=== PATIENT | male | born 1975 | race African-American/Black ===

== ENCOUNTER 2023-08-27 13:59 | Outpatient (AMB) | payer OTHER, SELFPAY ==
--- NOTE | 2023-08-27 14:04 | A.SPINEOV_ITS ---
Intake Intake Visit Reasons: spinal stenosis Intake Note: Mr. Mark is here today c/o low back pain. 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 He is a 48-year-old HIV- positive gentleman who has had chronic low back pain for years, with intermittent feelings of fatigue in his legs. He works at [employer] and has been very physical with his job for many years. More recently he is also experienced worsening of his pre-existing erectile dysfunction. He underwent a new MRI showing moderate to severe stenosis at L4-5 and was sent today for an evaluation urgently to evaluate for possible stenosis being part of his issue with erectile dysfunction. From the standpoint of his back pain, he is in chronic pain daily from the moment he gets up in the morning throughout his day. Has I mentioned he is very physically active with his job. 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 None of these things have ever giving him any lasting relief. With regard to the erectile dysfunction, this is a problem that he has had going on for approximately 5 years. It started sometime around when he had his heart attack and from there has been present. His urologist gave him Cialis and V iagra but unfortunately it has stopped working. He does not report any incontinence, no saddle anesthesia. He does have a difficulty starting a stream some time when he is urinating but otherwise he can empty his bladder normally. Underwent postvoid residual assessment and urodynamic studies and everything was normal. PMH: HIV positive, he is followed by from infectious disease at [facility], his CD4 count has been low, he is maintained on 0defesy. He had a history of a heart attack 5 years ago, underwent a stent. He tells me that he is followed by Dr. Sharma at [facility] and has been told the rest of his heart arteries are normal and he has no significant dysfunction of his heart. History of high cholesterol and hypertension. He denies any problems with his lungs. Denies any kidney issues, bleeding disorders. No previous history of back surgery. No history of abdominal surgery. Social hx: He does not smoke, does not drink or use any recreational drugs. He works as [employer] and was not. Medications: Fenofibrate, rosuvastatin, mirtazapine, metoprolol, baby aspirin, Cialis, Odefesey. Allergies: None Physical exam: Awake alert oriented no acute distress pulse strength of bilateral lower extremities with normal reflexes. Imaging review: Lumbar MRI done at [facility] in 2023 shows severely collapsed disc at L3-4 and L4-5 with moderate central canal stenosis at L3-4 and severe central canal stenosis at L4-5. Impression: 48-year-old male presents with chronic low back pain, intermittent claudicating leg pains especially when walking stairs. Also has a history of erectile dysfunction which has more recently gotten worse. Specifically he has no longer responding to the erectile dysfunction medications like he used to. He has no cauda equina symptoms in the classic sense of saddle anesthesia, incontinence etc.. He underwent urodynamic studies as well as postvoid residual studies and these are all normal. His imaging shows severely collapsed disc at L3-4 and L4-5. He has stenosis at both levels but is worse at L4-5. I think he would be a great candidate for lumbar fusion surgery, either in oblique lumbar interbody fusion versus a trans Kambin. I will speak with Dr. Maria and show him the imaging. Unfortunately I do not think there is any connection with the stenosis and the erectile dysfunction as he does not have any other overlapping symptoms consistent with cauda equina syndrome. Maybe the pain in his back is limiting somehow but I would not expect the erectile dysfunction to improve after surgery. The patient and I did briefly discuss risks and benefits of surgery were as well as expected outcomes of back pain and bilateral leg pain. He is interested in proceeding with surgery. I will call him back once I have a chance to speak with Dr. Maria. He is aware that we would not be able to give him any prediction that his erectile dysfunction will improve after surgery. Pt was given risk and benefits of surgery including but not limited to infection, hematoma , nerve injury,durotomy, weakness,bowel/bladder injury, persistent pain, persistent erectile dysfunction issues\, as well as the option to continue with conservative treatment and patient wishes to proceed with surgery. Pt is aware they should stop their motrin, aspirin 7 days prior to surgery. All questions were answered to the best of our ability. If there is anything about this patients medical history that we have overlooked or concerns you have about us proceeding with surgery we would appreciate any input you can offer. Thank you for allowing us to care for your patient. The total time spent with this visit with this patient was 45 minutes reviewing history, physical exam, lumbar imaging review, and implementation of treatment plan or further diagnostic testing Tobin Maria MD,PhD [facility] Coding Level of Care Code New Pt Level 4 (68697) Diagnoses Lumbar degenerative disc disease M51.36
== END 2023-08-27 14:50 | disposition home or self-care (01) ==
PROVIDERS: Referring Provider Physician Assistant; Visit Provider Physician Assistant
DX: M51.36 Other intervertebral disc degeneration, lumbar region (principal)
CPT/HCPCS: 99204

== ENCOUNTER → 2023-08-27 13:59 | Outpatient (BNVA) | payer OTHER, SELFPAY | PROVIDERS: Visit Provider Physician Assistant ==

== ENCOUNTER → 2023-10-14 13:13 | Outpatient (BNV) | payer OTHER, SELFPAY | PROVIDERS: Admitting Provider Neurological Surgery; PCP Internal Medicine; Visit Provider Internal Medicine Cardiovascular Disease | DX: R00.1 Bradycardia, unspecified (principal) | CPT/HCPCS: 93010 ==

== ENCOUNTER 2023-10-16 13:27 | Outpatient (AMB) | payer OTHER, SELFPAY ==
--- NOTE | 2023-10-16 13:29 | HO.SPINEOV ---
Intake Visit Reasons: Discuss surgery Intake Note: Mr. 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 He is scheduled to undergo an oblique lumbar interbody fusion L3-4 and L4-5 in 2 weeks. He comes in to meet me and to answer any residual questions. He is planning to move to [facility] after the surgery. I told him that he is free to go as soon as he feels able to move. All other questions were answered satisfactorily. I spent 25 minutes in this consult. Thank you for letting me take care of your patient. Barney Maria MD, PhD Sp[facility] Trained Neurosurgeon Director, [facility] Coding Level of Care Code Est Pt Level 2 (25009) Diagnoses Lumbar degenerative disc disease M51.36
== END 2023-10-16 14:03 | disposition home or self-care (01) ==
PROVIDERS: PCP Internal Medicine; Visit Provider Neurological Surgery
DX: M51.36 Other intervertebral disc degeneration, lumbar region (principal)
CPT/HCPCS: 99212

== ENCOUNTER → 2023-10-16 13:27 | Outpatient (BNVA) | payer OTHER, SELFPAY | PROVIDERS: PCP Internal Medicine; Visit Provider Neurological Surgery ==

== ENCOUNTER 2023-10-27 08:49 | Inpatient (IN) | payer OTHER, SELFPAY ==
--- NOTE | 2023-10-14 | ECG_ITS ---
Test Reason : preop Blood Pressure : / mmHG Vent. Rate : 059 BPM Atrial Rate : 059 BPM P-R Int : 190 ms QRS Dur : 086 ms QT Int : 374 ms P-R-T Axes : 036 006 012 degrees QTc Int : 370 ms Sinus bradycardia Otherwise normal ECG No previous ECGs available Referred By: Anabela Haley Electronically Signed By:Oleg Epperson
[2023-10-14 12:19] VITALS: BP 124/77; PULSE 65; RESP 18; O2SAT 97; BMI 35.8
--- NOTE | 2023-10-14 12:54 | HO.ANESPROP2 ---
Documented by User: Anabela Haley NP 10/26/23 09:49 HPI - Anesthesia Eval Consult details Narrative: 48yo M for L3-4,L4-5 Oblique Lumbar Interbody Fusion No recent illness No CP/SOB with walking on treadmill HIV on triple therapy. Dr Sruthi [place]. Last viral RNA load (10/2023) <20 Afib 2020 x 1, no recurrance, no OAC CAD with VA s/p stent 2015. Follows [facility]. Stable at 05/2023 office visit for 1 year f/u KINSEY. CPAP QHS PMFSH Active Problems Active Problems: All Active Problems Lumbar degenerative disc disease (Acute) Past Medical History Medical History Myocardial infarct Back pain On beta eren at home Elevated cholesterol Erectile dysfunction CKD (chronic kidney disease) stage 3, GFR 30-59 ml/min Diverticulitis HSV (herpes simplex virus) infection History of MRSA infection Hyperlipidemia Myocardial infarction Hx of gonorrhea Hx of syphilis HIV (human immunodeficiency virus infection) Atrial fibrillation Sleep apnea Family History Family history of problems with anesthesia: No Surgical History Surgical History History of coronary artery stent placement Hx of cardiac catheterization H/O colonoscopy History of Problems with Anesthesia: No Social History Social History Are you a primary human services care specialist to a significant other at home: No Do you presently have visiting nurse or other home services: No Patient Tobacco Use Status: Never used Tobacco Use of substances other than those prescribed or required for medical reasons: Yes Substance Use Frequency: Daily Have you been hit, kicked, punched, or otherwise hurt by someone within the past year? If so, by whom?: No Are you DNR?: No Advance Directives: No Advance Directives Information Provided: No Advance Directives on File: No Recently lost weight without trying: No How much weight loss: 2-13 pounds Eating poorly because of decreased appetite: No Nutrition screen score: 1 Nutrition Risks: No Nutritional Risk Poor oral hygiene: No Meds Allergies Allergy/AdvReac Type Severity Reaction Status Date / Time No Known Allergies Allergy Verified 10/16/23 13:30 Home Medications ?Medication ?Instructions ?Recorded ?Confirmed ?Last Taken ?Type aspirin 81 mg tablet,delayed 81 mg PO DAILY 10/13/23 10/27/23 10/20/23 History release diclofenac sodium 75 mg 75 mg PO BID PRN Pain 10/13/23 10/14/23 Unknown History tablet,delayed release emtricitabine 200 mg-rilpivirine 1 tab PO BEDTIME 10/13/23 10/14/23 10/20/23 History 25 mg-tenofovir alafenam 25 mg tablet fenofibrate 54 mg tablet 54 mg PO BEDTIME 10/13/23 10/27/23 10/20/23 History metoprolol tartrate 50 mg tablet 50 mg PO BID 10/13/23 10/13/23 10/20/23 History omega 4-iod-qsi-fish oil 1,200 mg 1 cap PO DAILY 10/13/23 10/27/23 10/20/23 History (144 mg-216 mg) capsule (Fish Oil) rosuvastatin 40 mg tablet 40 mg PO BEDTIME 10/13/23 10/27/23 10/26/23 History tadalafil 20 mg tablet 20 mg PO DAILY PRN Sexual Activity 10/13/23 10/14/23 Unknown History mirtazapine 7.5 mg tablet 7.5 mg PO BEDTIME 10/14/23 10/27/23 10/20/23 History naproxen 500 mg tablet 500 mg PO BID PRN Pain 10/14/23 10/14/23 10/20/23 History Exam Height,Weight and Vital Signs: Height 6 ft 2 in Weight 126.552 kg Last Vital Signs Pulse 65 10/14/23 12:19 Resp 18 10/14/23 12:19 BP 124/77 10/14/23 12:19 Pulse Ox 97 10/14/23 12:19 O2 Del Method Room Air 10/14/23 12:19 Pertinent Lab Results Pertinent Lab Results: Lab Results 10/14/23 Range/Units 13:17 Blood Type O Positive Antibody Screen NEGATIVE CBC 10/2023 WNL Narrative Narrative: EKG 10/2023 Vent. Rate : 059 BPM Atrial Rate : 059 BPM P-R Int : 190 ms QRS Dur : 086 ms QT Int : 374 ms P-R-T Axes : 036 006 012 degrees QTc Int : 370 ms Sinus bradycardia Otherwise normal ECG No previous ECGs available ECHO 2015 LV size is nml. Mild conc LVH. LVEF 55-60%. Basal mid to inferolat wall mildly hypokinetic. No doppler evidence of increased filling pressure. RV size is nml in size and function. No evidence for valve dysfunction. Aortic root and ascending aorta are at the upper limit of nml. PASP could not obtained Trivial pericardial effusion with no significant hemodynamic significance. Airway Mallampati Class: II TM Dist: >3cm Neck ROM: Full Loose/Missing/Broken Teeth: Yes (Molars pulled ) Heart: RRR Lungs: CTAB Assessment and Plan Assessment Anesthesia Assessment: Anesthesia Plan Discussed and PAT Visit Final Anesthetic Review Family History of Problems with Anesthesia: No History of Problems with Anesthesia: No Documented by User: Buster Rivas MD 10/27/23 09:36 [facility] Past Medical History Medical History Myocardial infarct Back pain On beta eren at home Elevated cholesterol Erectile dysfunction CKD (chronic kidney disease) stage 3, GFR 30-59 ml/min Diverticulitis HSV (herpes simplex virus) infection History of MRSA infection Hyperlipidemia Myocardial infarction Hx of gonorrhea Hx of syphilis HIV (human immunodeficiency virus infection) Atrial fibrillation Sleep apnea Surgical History Surgical History History of coronary artery stent placement Hx of cardiac catheterization H/O colonoscopy Social History Social History Are you a primary human services care specialist to a significant other at home: No Do you presently have visiting nurse or other home services: No Patient Tobacco Use Status: Never used Tobacco Use of substances other than those prescribed or required for medical reasons: Yes Substance Use Frequency: Daily Have you been hit, kicked, punched, or otherwise hurt by someone within the past year? If so, by whom?: No Are you DNR?: No Advance Directives: No Advance Directives Information Provided: No Advance Directives on File: No Recently lost weight without trying: No How much weight loss: 2-13 pounds Eating poorly because of decreased appetite: No Nutrition screen score: 1 Nutrition Risks: No Nutritional Risk Poor oral hygiene: No Meds Allergies Allergy/AdvReac Type Severity Reaction Status Date / Time No Known Allergies Allergy Verified 10/16/23 13:30 Home Medications ?Medication ?Instructions ?Recorded ?Confirmed ?Last Taken ?Type aspirin 81 mg tablet,delayed 81 mg PO DAILY 10/13/23 10/27/23 10/20/23 History release diclofenac sodium 75 mg 75 mg PO BID PRN Pain 10/13/23 10/14/23 Unknown History tablet,delayed release emtricitabine 200 mg-rilpivirine 1 tab PO BEDTIME 10/13/23 10/14/23 10/20/23 History 25 mg-tenofovir alafenam 25 mg tablet fenofibrate 54 mg tablet 54 mg PO BEDTIME 10/13/23 10/27/23 10/20/23 History metoprolol tartrate 50 mg tablet 50 mg PO BID 10/13/23 10/13/23 10/20/23 History omega 8-egw-ncr-fish oil 1,200 mg 1 cap PO DAILY 10/13/23 10/27/23 10/20/23 History (144 mg-216 mg) capsule (Fish Oil) rosuvastatin 40 mg tablet 40 mg PO BEDTIME 10/13/23 10/27/23 10/26/23 History tadalafil 20 mg tablet 20 mg PO DAILY PRN Sexual Activity 10/13/23 10/14/23 Unknown History mirtazapine 7.5 mg tablet 7.5 mg PO BEDTIME 10/14/23 10/27/23 10/20/23 History naproxen 500 mg tablet 500 mg PO BID PRN Pain 10/14/23 10/14/23 10/20/23 History Assessment and Plan Final Anesthetic Review NPO: Yes ASA Class: III Final Preanesthetic Review: No Changes in Pt Med Stat, Meds/Allgs Chart Reviewed, Consent Obtained/Reviewed and Anes Risks/Benef Reviewed Patient Risk: Intermediate Procedure Risk: Intermediate Anesthetic Plan Anesthetic Plan: GA Disposition: Standard PACU
[2023-10-27] VITALS (12 sets, daily range): BP systolic 107–148; BP diastolic 55–101; PULSE 67–82; RESP 14–18; TEMP 36.2–36.6; O2SAT 95–100; BMI 36.4
--- NOTE | ~2023-10-27 | FL_ITS ---
EXAMINATION: XR FLUOROSCOPY WITH IMAGES CLINICAL INFORMATION: L3-L4, L4-L5 oblique lumbar interbody fusion. COMPARISON: None available. TECHNIQUE: Fluoroscopy Supervised By: Dr. Bill Maria Fluoroscopy Time: 2.93 Cumulative Dose: 190.69 mGy-cm DAP: 50.167 Gy-cm2 Images: 9 FINDINGS: Fluoroscopic guidance provided. Images provided demonstrate surgical hardware with disc spacers for posterior fixation at L3-L4-L5 levels. Please refer to operative report for more detailed evaluation. FL/FL guidance in OR IMPRESSION: Fluoroscopic guidance provided. Images provided demonstrate surgical hardware with disc spacers for posterior fixation at L3-L4-L5 levels. Please refer to operative report for more detailed evaluation.
--- NOTE | 2023-10-27 06:59 | P.HPSUR_ITS ---
Pre-Procedural Eval Section A - 24 Hr Update-Section A only Date of Service: 10/27/23 The patient is an INPATIENT: No Changes since office visit: No Cold of Flu in the past 2 weeks, No New Medical Problems, No Changes in Medication and No Patient answered all questions The patient has been examined within 24 hours of the surgical procedure. The History & Physical has been completed within 30 days and I have reviewed it.: No Section B - Complete if H&P > 30 days Chief Complaint: Other intervertebral disc degeneration, lumbar reg Allergies: Allergies Allergy/AdvReac Type Severity Reaction Status Date / Time No Known Allergies Allergy Verified 10/16/23 13:30 Review of Systems Sugical H&P ROS: Negative: Constitution, Cardiovascular, Respiratory, Neurological, Psychiatric, Hem-Onc, Allergic/Immunologic, Gastrointestinal, Genitourinary, Musculoskeletal, Integumentary, Endocrine and Eyes/Ears/Nose/Thr oat Exam Surgical H&P Exam: Not Evaluated: HEENT, Not Evaluated: Heart, Not Evaluated: Lungs, Not Evaluated: Extremities, Not Evaluated: Abdomen, Not Evaluated: Skin and Not Evaluated: Neurological Plan Diagnosis/Plan: Unchanged L3-4, L4-5 Oblique Lumbar Interbody fusion Time Spent With Patient Time: Total time managing care of this patient today __8__ minutes.
--- OUTSIDE RECORDS SUMMARY | 2023-10-27 08:53 | XMS_ITS | Continuity of Care Document ---
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 Refills 11, Maintenance, 02/15/16 14:03:48, Route to Pharmacy Electronically, [id number], [facility] Start Date: 02/15/16 Stop Date: 02/09/17 Status: Ordered Fish Oil 1000 mg oral capsule 1 capsule = 1,000 mg, By Mouth, 2 times a day, # 60 capsule, 0 Refills, Maintenance, 02/15/16 14:12:12, Capsule Start Date: 02/15/16 Status: Ordered metoprolol 50 mg oral tablet 50 mg, By Mouth, 2 times a day, # 60 tablet, Refills 3, Tot. Refills 3, Maintenance, 02/15/16 14:06:46, Route to Pharmacy Electronically, [id number], [facility] Start Date: 02/15/16 Stop Date: 06/14/16 Status: Ordered Odefsey oral tablet 1 tablet, By Mouth, Daily, # 30 tablet, 0 Refills, Maintenance, 09/04/19 17:05:00 EDT, Tablet Start Date: 09/04/19 Status: Ordered Odefsey oral tablet 1 tablet, By Mouth, Daily, with meals, # 30 tablet, 5 Refills, Maintenance, 04/20/20 11:45:00 EST, Tablet, [id number], 1 tablet By Mouth Daily,x30 days,Instr:with meals, 183.5, cm, 02/29/20 15:03:00 EDT, Height, 132.2, kg, 02/29/20 15... Start Date: 04/20/20 Stop Date: 10/17/20 Status: Ordered rosuvastatin 20 mg oral tablet 1 tablet = 20 mg, By Mouth, Daily, # 30 tablet, 0 Refills, Maintenance, 12/31/17 11:55:41 EDT, Tablet Start Date: 12/31/17 Status: Ordered Problem List Condition Effective Dates Status Health Status Inform ant AF (atrial fibrillation)(Confirmed) Active CAD (coronary artery disease)(Confirmed) Active History of HIV infection(Confirmed) Active KINSEY (obstructive sleep apnea)(Confirmed) Active Acquired polycythemia(Confirmed) Active Social History Social History Type Response Smoking Status Never smoker entered on: 02/20/16 Sex
--- OUTSIDE RECORDS SUMMARY | 2023-10-27 08:53 | XMS_ITS | Continuity of Care Document ---
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 Refills 11, Maintenance, 02/15/16 14:03:48, Route to Pharmacy Electronically, [id number], [facility] Start Date: 02/15/16 Stop [...] Maintenance, 02/15/16 14:06:46, Route to Pharmacy Electronically, [id number], [facility] Start Date: 02/15/16 Stop Date: 06/14/16 Status: Ordered Odefsey oral tablet 1 tablet, By Mouth, Daily, # 30 tablet, 0 Refills, Maintenance, 09/04/19 17:05:00 EDT, Tablet Start Date: 09/04/19 Status: Ordered Odefsey oral tablet 1 tablet, By Mouth, Daily, with meals, # 30 tablet, 5 Refills, Maintenance, 10/17/19 13:52:00 EDT, Tablet, [facility] #[id number], 1 tablet By Mouth Daily,x30 days,Instr:with meals, 188, cm, 09/13/19 16:07:00 EDT, Height, 129.8, kg, 09/03/19 9:39... Start Date: 10/17/19 Stop Date: 04/14/20 Status: Ordered rosuvastatin 20 mg oral tablet [...]
--- OUTSIDE RECORDS SUMMARY | 2023-10-27 08:53 | XMS_ITS | Continuity of Care Document ---
Author Organization [facility] Address [address] [place] [id number]- Care Team Providers Care Meat Curer Name Role Phone Hanna JASSO, Yohana [place] Primary Care Physician [place] [facility] [place] 05/07/22 [facility] [address] [place] [address]- Attending Physician: Epi Heller MD Admitting Physician: Arron JASSO, Epi Rodrigues Allergies, Adverse Reactions, Alerts No Known Allergies Immunizations Given and Recorded Vaccine Date Status Refusal Reason tetanus/diphtheria/pertussis, acel(Tdap) 04/23/22 Given tetanus/diphtheria/pertussis, acel(Tdap) 02/19/11 Recorded influenza virus vaccine, inactivated 03/23/22 Give n influenza virus vaccine, inactivated 05/14/21 Juvenal rded influenza virus vaccine, inactivated 03/14/20 Juvenal rded SARS-CoV-2 (COVID-19) mRNA BNT-162b2 vac 03/28/21 Recorded SARS-CoV-2 (COVID-19) mRNA BNT-162b2 vac 07/17/20 Recorded SARS-CoV-2 (COVID-19) mRNA BNT-162b2 vac 06/26/20 Recorded Meningococcal Conjugate Vaccine 10/12/18 Recorded Meningococcal Conjugate Vaccine 06/18/18 Recorded Measles/Mumps/Rubella Virus Vaccine 08/21/17 Recor ded pneumococcal 13-valent vaccine 03/30/13 Recorded Hepatitis A Adult Vaccine 08/26/11 Recorded Hepatitis A Adult Vaccine 02/19/11 Recorded pneumococcal 23-valent vaccine 05/21/11 Recorded Medications 0.25% ACETIC ACID IRRIGATION, US[ 0.25% ACETIC ACID IRRIGATION, US[, See Instructions, # 900 mL, Refills 3, Tot. Refills 3, Maintenance, use as directed to wash wound on foot, 04/10/22 16:09:00 EDT, Supply, 188, cm, 04/09/22 9:06:00 EDT, Height, 127, kg, 03/20/22 23:51:00 EDT, Dry Weight Start Date: 04/10/22 Status: Ordered AQUACEL AG AQUACEL AG, See Instructions, # 1 pack/packet, Refills 3, Tot. Refills 3, Maintenance, use as directed apply to wound between toes on left foot, 04/10/22 16:09:00 EDT, Supply, 188, cm, 04/09/22 9:06:00 EDT, Height, 127, kg, 03/20/22 23:51:00 EDT, Dry... Start Date: 04/10/22 Status: Ordered aspirin 81 mg oral delayed release tablet 81 mg, By Mouth, Daily, with food, # 30 tablet, Refills 11, Tot. Refills 11, Maintenance, 02/15/16 14:03:48, Route to Pharmacy Electronically, [id number], [facility] 3 Start Date: 02/15/16 Stop Date: 02/09/17 Status: Ordered fenofibrate 54 mg oral tablet 1 tablet = 54 mg, By Mouth, Daily at bedtime, TAKE 1 TABLET BY MOUTH DAILY Start Date: 03/20/22 Status: Ordered Fish Oil 1000 mg oral capsule 1 capsule = 1,000 mg, By Mouth, 2 times a day, # 60 capsule, 0 Refills, Maintenance, 02/15/16 14:12:12, Capsule Start Date: 02/15/16 Status: Ordered Gauze Pad (4 X 4) See Instructions, # 1 kit, Maintenance, Daily wet-to-dry dressing changes; cover with gauze, then wrap with gauze roll, 03/23/22 10:44:00 EDT, Supply, 188, cm, 03/22/22 15:01:00 EDT, Height, 127, kg,03/20/22 23:51:00 EDT, Dry Weight Start Date: 03/23/22 Status: Ordered Gauze Roll (4 ) See Instructions, # 4 each, Maintenance, Daily wet-to-dry dressing changes; cover with gauze, then wrap with gauze roll, 03/23/22 10:44:00 EDT, Supply, 188, cm, 03/22/22 15:01:00 EDT, Height, 127, kg, 03/20/22 23:51:00 EDT, Dry Weight Start Date: 03/23/22 Status: Ordered Gloves See Instructions, # 1 kit, Maintenance, Daily wet-to-dry dressing changes; cover with gauze, then wrap with gauze roll, 03/23/22 10:43:00 EDT, Supply, 188, cm, 03/22/22 15:01:00 EDT, Height, 127, kg,03/20/22 23:51:00 EDT, Dry Weight Start Date: 03/23/22 Status: Ordered metoprolol 50 mg oral tablet 50 mg, By Mouth, 2 times a day, # 60 tablet, Refills 3, Tot. Refills 3, Maintenance, 02/15/16 14:06:46, Route to Pharmacy Electronically, [id number], [facility] Start Date: 02/15/16 Stop Date: 06/14/16 Status: Ordered nystatin topical 716222 u/gm powder 1 application, Topically, 2 times a day, # 60 Gm, 0 Refills, Maintenance, 04/30/22 10:57:00 EST, Powder, [facility] #[id number], Partial fill upon patient request if the prescription is for a schedule II opioid drug., 1 application Topically 2 ti... Start Date: 04/30/22 Status: Ordered Odefsey oral tablet 1 tablet, By Mouth, Daily, # 30 tablet, 5 Refills, Maintenance, 04/08/22 15:30:00 EDT, Tablet, [facility] #[id number], Partial fill upon patient request if the prescription is for a schedule II opioid drug., 1 tablet By Mouth Daily,x30 days, 188,... Start Date: 04/08/22 Stop Date: 10/05/22 Status: Ordered Odefsey oral tablet 1 tablet, By Mouth, Daily at bedtime, # 30 tablet, 0 Refills, Maintenance, 09/04/19 17:05:00 EDT, Tablet Start Date: 09/04/19 Status: Ordered rosuvastatin 20 mg oral tablet 1 tablet = 20 mg, By Mouth, Daily at bedtime, # 30 tablet, 0 Refills, Maintenance, 12/31/17 11:55:41 EDT, Tablet Start Date: 12/31/17 Status: Ordered tadalafil By Mouth, Daily, 0 Refills, Maintenance, 08/06/20 16:59:00 EST, Partial fill upon patient request if the prescription is for a schedule II opioid drug. Start Date: 08/06/20 Status: Ordered Tape (1 -Paper) See Instructions, # 2 each, Maintenance, Daily wet-to-dry dressing changes; cover with gauze, then wrap with gauze roll, 03/23/22 10:43:00 EDT, Supply, 188, cm, 03/22/22 15:01:00 EDT, Height, 127, kg, 03/20/22 23:51:00 EDT, Dry Weight Start Date: 03/23/22 Status: Ordered Problem List Condition Confirmation Course Effective Dates Status Health St atus Informant AF (atrial fibrillation) Confirmed Active CAD (coronary artery disease) Confirmed Active History of HIV infection Confirmed Active Obese class II Confirmed Active KINSEY (obstructive sleep apnea) Confirmed Active Polycythemia vera Confirmed Active Acquired polycythemia Confirmed Active Vital Signs Most recent to oldest [Reference Range]: 1 Height 188 cm (04/30/22 10:43 AM) Weight 129.54 kg (04/30/22 10:43 AM) Oxygen Saturation [94-100 %] 97 % (04/30/22 10:43 AM) Pulse Rate [55-90 bpm] 71 bpm (04/30/22 10:43 AM) Body Mass Index [18.5-24.99 kg/m2] 36.65 kg/m2 *>HHI* (04/30/22 10:43 AM) Blood Pressure [90-138/55-84 mm Hg] 120/ 64mm Hg (04/30/22 10:43 AM) Mode of Delivery (Oxygen) Room air (04/30/22 10:43 AM) Blood pressure sites Arm, left (04/30/22 10:43 AM) Weight Obtained Via Patient/family state d (04/30/22 10:43 AM) Social History Social History Type Response Smoking Status Never smoker entered on: 02/20/16 Sex Note * Norma Green: PERFORM, SIGN, VERIFY Event Display: Patient Education/Instruction Authored Date: [id number] [facility] *BVS 0003 Main Clinical Summary Name ILEANA ZARATE Age 47 Years 1975 PCP Hanna JASSO, Yohana [place] [facility]CP [facility] [id number] Visit Date 04/30/2022 10:17:00 Additional Instructions: Scheduled Appointments?? Future Appointments ?No Future Appointments Scheduled Follow-Up Instructions ?? Diagnosis Medications: Please continue your medications until treatment is completed or stopped by your provider. Discuss any questions related to medications with your provider. New Medications [facility] #[id number], [address], [place] [id number], [phone] Nystatin Topical (nystatin topical 814745 u/gm powder) 1 nilsa Topically twice a day. Refills: 0. Next Dose: Medications to Continue with No Changes These medications were not printed or sent to your pharmacy Aspirin (aspirin 81 mg oral delayed release tablet) 81 Milligram Oral Daily for 30 Days. with food.Refills: 11. Next Dose: Durable Medical Equipment (Gauze Pad (4 X 4)) Daily wet-to-dry dressing changes; cover with gauze, then wrap with gauze roll. Refills: 0. Next Dose: Durable Medical Equipment (Gauze Roll (4 )) Daily wet-to-dry dressing changes; cover with gauze, then wrap with gauze roll. Refills: 0. Next Dose: Durable Medical Equipment (Gloves) Daily wet-to-dry dressing changes; cover with gauze, then wrap with gauze roll. Refills: 0. Next Dose: Durable Medical Equipment (Tape (1 -Paper)) Daily wet-to-dry dressing changes; cover with gauze, then wrap with gauze roll. Refills: 0. Next Dose: emtricitabine/rilpivirine/tenofovir (Odefsey oral tablet) 1 tab(s) Oral Daily at Bedtime. Next Dose: emtricitabine/rilpivirine/tenofovir (Odefsey oral tablet) 1 tab(s) Oral Daily for 30 Days. Refills:5. Next Dose: Fenofibrate (fenofibrate 54 mg oral tablet) 1 tab(s) Oral Daily at Bedtime. TAKE 1 TABLET BY MOUTH DAILY. Next Dose: Metoprolol (metoprolol 50 mg oral tablet) 50 Milligram Oral twice a day for 30 Days. Refills: 3. Next Dose: Miscellaneous Rx (0.25% ACETIC ACID IRRIGATION, US[) use as directed to wash wound on foot. Refills: 3. Next Dose: Miscellaneous Rx (AQUACEL AG) use as directed apply to wound between toes on left foot. Refills: 3. Next Dose: [place]-3 Polyunsaturated Fatty Acids (Fish Oil 1000 mg oral capsule) 1 capsule Oral twice a day. Refills: 0. Next Dose: Rosuvastatin (rosuvastatin 20 mg oral tablet) 1 tab(s) Oral Daily at Bedtime. Next Dose: tadalafil Oral Daily. Next Dose: Allergy Info:?? NKA Medications Given This Visit Future Orders ?No future orders Vital Signs Height 188 cm Weight 129.54 kg BMI 36.65 kg/m2 Blood Pressure 120 mm Hg/64 mm Hg Temperature Pulse Rate 71 bpm Respiratory Rate 02 Sat Mode of Delivery 97 %/Room air You can now view a summary of your hospital visit from the comfort of your home through a free online portal called [employer]. [employer] is a website that allows you to securely view your medical information including discharge summary, medications and follow-up visits. ??You can alsosend a secure electronic message to your doctor???s office to request appointments, renew medications or just ask a question. You can enroll at [email or web address] or register during your next office visit. Disclaimer:?? The information provided is of a general nature and is intended to be used in conjunction with the recommendations and advice of your health care practitioner. ??Every effort has been made to ensure that the information provided is accurate and complete at the time it is provided to you however, as your needs change, or, as new ??information becomes available, different or additional instructions may be required. If you have questions, please consult with your primary care provider or pharmacist, as appropriate. ??This information is not intended to serve as substitution for assessment and evaluation by a qualified health care provider. If you do not have a primary care provider, you may find a [facility] provider by calling [facility] at [phone]. For information about the plan of care including goals and instructions for your diagnosis, please see the patient education orders section of this document. Patient Education Materials?? The content of this educational material or handout may have been modified, supplemented, or adapted from its original content and format to support your individualized medical care. Patient Care team information Care Team Personnel Name: Leticia Herrera RN Position: [facility] RN Member Role: Primary Care Nurse Name: Hanna JASSO, Yohana Newton Position: [facility] Physician (General Medicine) Member Role: PCP Address: Address: [address] [place] [address]- Name: Alison Sandoval RN Position: [facility] RN Member Role: Primary Care Nurse Name: Sena Crump Position: [facility] RN Member Role: Primary Care Nurse Name: Maren Wan RN Position: [facility] PCO RN Member Role: Primary Care Nurse Name: Sruthi Hauser MD Position: [facility] Infectious Disease MD Member Role: Lifetime Consulting Physician Address: Address: [address] [place] [address] [place] [address]- Name: Yulisa Lobo RN Position: [facility] RN Member Role: Primary Care Nurse Care Team Related Persons Name: NONE, GIVEN Address: home [address] [place] [address] Name: ANGIE ZARATE Address: home [address] [place] [address] Name: JENNIFER ZARATE Address: home [address] [place] [address]
--- OUTSIDE RECORDS SUMMARY | 2023-10-27 08:53 | XMS_ITS | Continuity of Care Document ---
Author Organization [facility] Address [address] [place] [address]- Care Team Providers Care Costume Design Teacher Name Role Phone Hanna JASSO, Yohana [place] Primary Care Physician [phone] Encounter [facility] Date(s): 08/14/23 - 09/13/23 [facility] [address] [place] [address]- Allergies, Adverse Reactions, Alerts No Known Allergies Immunizations Given and Recorded Vaccine Date Status Refusal Reason tetanus/diphtheria/pertussis, acel(Tdap) 04/23/22 Given tetanus/diphtheria/pertussis, acel(Tdap) 02/19/11 Recorded [id number] 12y+ bivalent booster vax 04/23/22 Recorded influenza virus vaccine, inactivated 03/23/22 Give [...] Maintenance, 02/15/16 14:03:48, Route to Pharmacy Electronically, [id number], [facility] Start Date: 02/15/16 Stop Date: [...] Maintenance, 02/15/16 14:06:46, Route to Pharmacy Electronically, [id number], [facility] Start Date: 02/15/16 Stop Date: 06/14/16 Status: Ordered Nystop 649945 u/gm powder See Instructions, APPLY TOPICALY 2 TIMES A DAY, # 60 Gm, 0 Refills, Maintenance, 09/18/22 8:11:00 EDT, [facility] #[id number], 25, APPLY TOPICALY 2 TIMES A DAY, 188, cm, 04/30/22 10:43:00 EST, Height, 127, kg, 03/20/22 23:51:00 EDT, Dry Weight Start Date: 09/18/22 Status: Ordered Odefsey oral tablet 1 tablet, By Mouth, Daily at bedtime, # 30 tablet, 0 Refills, Maintenance, 09/04/19 17:05:00 EDT, Tablet Start Date: 09/04/19 Status: Ordered Odefsey oral tablet 1 tablet, By Mouth, Daily, # 30 tablet, 5 Refills, Maintenance, 03/12/23 10:59:00 EDT, Tablet, [facility] #[id number], Partial fill upon patient request if the prescription is for a schedule II opioid drug., 1 tablet By Mouth Daily,x30 days, 188,... Start Date: 03/12/23 Stop Date: 09/08/23 Status: Ordered rosuvastatin 20 mg oral tablet [...] Active History of HIV infection Confirmed Active KINSEY (obstructive sleep apnea) Confirmed Active Polycythemia vera Confirmed Active Acquired polycythemia Confirmed Active Severe obesity (BMI 35.0-39.9) with comorbidity Confirmed Active Social History Social History Type Response Smoking Status Never smoker entered on: 02/20/16 Sex Patient Care team information Care Team Personnel Name: Leticia Herrera RN Position: [facility] RN Member Role: Primary Care Nurse Name: Hanna JASSO, Yohana Newton Position: Reference Physician Member Role: PCP Address: Address: [address] [place] [address], [address] [place], [place], [place] [address] Name: Alison Sandoval RN Position: [facility] RN Member Role: Primary Care Nurse Name: Maren aWn RN Position: [facility] AMB Nurse Member Role: Primary Care Nurse Name: Sruthi Hauser MD Position: [facility] Physician - Infectious Disease Member Role: Lifetime Consulting Physician Address: Address: [address] [place] [address] [place] [address] Name: Yulisa Lobo RN Position: S RN Member Role: Primary Care Nurse Care Team Related Persons Name: NONE, GIVEN Address: [place] [address] Name: ANGIE ZARATE Address: home [address] [place] [address] Name: JENNIFER ZARATE Address: [place] [address]
--- OUTSIDE RECORDS SUMMARY | 2023-10-27 08:53 | XMS_ITS | Continuity of Care Document ---
Author Organization [facility] Address [address] [place] [address]- Care Team Providers Care Customer Service Analyst Name Role Phone Hanna JASSO, Yohana [place] Primary Care Physician Encounter 03/24/22 - 04/25/22 [facility] [address] [place] [address]- Discharge Disposition: CLIENT NO LONGER REQUIRES SKILLED CARE Allergies, Adverse Reactions, Alerts No Known Allergies [...] Maintenance, 02/15/16 14:03:48, Route to Pharmacy Electronically, [id number], [facility] 3 Start Date: 02/15/16 Stop Date: 02/09/17 [...] Maintenance, 02/15/16 14:06:46, Route to Pharmacy Electronically, [id number], [facility] 3 Start Date: 02/15/16 Stop Date: 06/14/16 Status: Ordered Odefsey oral tablet 1 tablet, By Mouth, Daily, # 30 tablet, 5 Refills, Maintenance, 04/08/22 15:30:00 EDT, Tablet, [facility] #[id number], Partial fill upon patient request if the [...] vera Confirmed Active Acquired polycythemia Confirmed Active Social History Social History Type Response Smoking Status Never smoker entered on: 02/20/16 Sex Patient Care team information Care Team Personnel Name: Leticia Herrera RN Position: [facility] RN Member Role: Primary Care Nurse Name: Yohana Ferreira MD Position: [facility] Physician (General Medicine) Member Role: PCP Address: Address: [address] [place] [address] Name: Alison Sandoval RN Position: [facility] RN Member Role: Primary Care Nurse Name: Sena Crump Position: [facility] RN Member Role: Primary Care Nurse Name: Maren Wan RN Position: [facility] PCO RN Member Role: Primary Care Nurse Name: Sruthi Hauser MD Position: [facility] Infectious Disease MD Member Role: Lifetime Consulting Physician Address: Address: [address] [place] [address] [place], [place] [address] Name: Yulisa Lobo RN Position: [facility] RN Member Role: Primary Care Nurse Care Team Related Persons Name: NONE, GIVEN Address: [address] [address] Name: ANGIE ZARATE Address: home [address] [place] [address] Name: JENNIFER ZARATE Address: [address] [address]
--- OUTSIDE RECORDS SUMMARY | 2023-10-27 08:53 | XMS_ITS | Continuity of Care Document ---
Author Organization [facility] Address [address] [place] [address]- Care Team Providers Care Furniture Stainer Name Role Phone Hanna JASSO, Yohana [place] Primary Care Physician [phone] [place] [facility] 11[place]13[place]21 [facility] [address] [place] [address] Allergies, Adverse Reactions, Alerts No Known Allergies Immunizations Given and Recorded Vaccine Date Status Refusal Reason SARS-CoV-2 (COVID-19) mRNA BNT-162b2 vac 03/28/21 Recorded SARS-CoV-2 (COVID-19) mRNA BNT-162b2 vac 07/17/20 Recorded SARS-CoV-2 (COVID-19) mRNA BNT-162b2 vac 06/26/20 Recorded influenza virus vaccine, inactivated 03/14/20 Juvenal rded Meningococcal Conjugate Vaccine 10/12/18 Recorded Meningococcal Conjugate Vaccine 06/18/18 Recorded Measles/Mumps/Rubella Virus Vaccine 08/21/17 Recor ded pneumococcal 13-valent vaccine 03/30/13 Recorded Hepatitis A Adult Vaccine 08/26/11 Recorded Hepatitis A Adult Vaccine 02/19/11 Recorded pneumococcal 23-valent vaccine 05/21/11 Recorded tetanus/diphtheria/pertussis, acel(Tdap) 02/19/11 Recorded Medications aspirin 81 mg oral delayed release tablet 81 mg, By Mouth, Daily, with food, # 30 tablet, Refills 11, Tot. Refills 11, Maintenance, 02/15/16 14:03:48, Route to Pharmacy Electronically, [id number], [facility] Start Date: 02/15/16 Stop Date: [...] Maintenance, 02/15/16 14:06:46, Route to Pharmacy Electronically, [id number], [facility] Start Date: 02/15/16 Stop Date: 06/14/16 Status: Ordered Odefsey oral tablet 1 tablet, By Mouth, Daily, # 30 tablet, 0 Refills, Maintenance, 09/04/19 17:05:00 EDT, Tablet Start Date: 09/04/19 Status: Ordered Odefsey oral tablet 1 tablet, By Mouth, Daily, with meals, # 30 tablet, 5 Refills, Maintenance, 10/14/21 13:56:00 EDT, Tablet, [facility] #[id number], 1 tablet By Mouth Daily,x30 days,Instr:with meals, 183.5, cm, 12/03/20 16:54:00 EDT, Height, 132.2, kg, 02/29/20 15... Start Date: 10/14/21 Stop Date: 04/12/22 Status: Ordered rosuvastatin 20 mg oral tablet 1 tablet = 20 mg, By Mouth, Daily, # 30 tablet, 0 Refills, Maintenance, 12/31/17 11:55:41 EDT, Tablet Start Date: 12/31/17 Status: Ordered tadalafil By Mouth, Daily, 0 Refills, Maintenance, 08/06/20 16:59:00 EST, Partial fill upon patient request if the prescription is for a schedule II opioid drug. Start Date: 08/06/20 Status: Ordered Problem List Condition Effective Dates Status Health Status Inform ant AF (atrial fibrillation)(Confirmed) Active CAD (coronary artery disease)(Confirmed) Active History of HIV infection(Confirmed) Active KINSEY (obstructive sleep apnea)(Confirmed) Active Acquired polycythemia(Confirmed) Active Social History Social History Type Response Smoking Status Never smoker entered on: 02/20/16 Sex
--- OUTSIDE RECORDS SUMMARY | 2023-10-27 08:54 | XMS_ITS | Continuity of Care Document ---
Author Organization [facility] Address [address] [place] [address]- Care Team Providers Care Parcel Wrapper Name Role Phone Hanna JASSO, Yohana Newton Primary Care Physician [phone] Encounter [facility] Date(s): 11/05/22 - 12/05/22 [facility] [address] [place] [address]- Attending Physician: Tamar Rodriguez Admitting Physician: AdmtrTamar Referring Physician: Admtr ArDileep Allergies, Adverse Reactions, Alerts No Known Allergies Immunizations Given and Recorded Vaccine Date Status Refusal Reason tetanus/diphtheria/pertussis, acel(Tdap) 04/23/22 Given tetanus/diphtheria/pertussis, acel(Tdap) 02/19/11 Recorded [id number] 12y+ bivalent booster vax 04/23/22 Recorded influenza [...] Maintenance, 02/15/16 14:03:48, Route to Pharmacy Electronically, [id number], [facility] 3 Start Date: 02/15/16 Stop Date: [...] Maintenance, 02/15/16 14:06:46, Route to Pharmacy Electronically, [id number], [facility] Start Date: 02/15/16 Stop Date: 06/14/16 Status: Ordered Nystop [id number] u/gm powder See Instructions, APPLY TOPICALY 2 TIMES A DAY, # 60 Gm, 0 Refills, Maintenance, 09/18/22 8:11:00 EDT, [facility] #[id number], 25, APPLY TOPICALY 2 TIMES A DAY, [...] Daily, # 30 tablet, 5 Refills, Maintenance, 09/04/22 16:04:00 EDT, Tablet, [facility] #[id number], Partial fill upon patient request if the prescription is for a schedule II opioid drug., 1 tablet By Mouth Daily,x30 days, 188,... Start Date: 09/04/22 Stop Date: 03/03/23 Status: Ordered rosuvastatin 20 mg oral tablet [...] Status Never smoker entered on: 02/20/16 Sex Laboratory * Event Display: Non Lab Results Authored Date: * Event Display: Non Lab Results Authored Date: Patient Care team information Care Team Personnel Name: Leticia Herrera RN Position: S RN Member Role: Primary Care Nurse Name: Yohana Ferreira MD Position: S Physician - Primary Care Member Role: PCP Address: Address: [address] [place] [address] Name: Alison Sandoval RN Position: [facility] RN Member Role: Primary Care Nurse Name: Maren Wan RN Position: [facility] AMB Nurse Member Role: Primary Care Nurse Name: Sruthi Hauser MD Position: [facility] Physician - Infectious Disease Member Role: Lifetime Consulting Physician Address: Address: [address] [place] [address] Name: Yulisa Lobo RN Position: [facility] RN Member Role: Primary Care Nurse Care Team Related Persons Name: NONE, GIVEN Address: [place] [address] Name: ANGIE ZARATE Address: home [address] [place] [address] Name: JENNIFER ZARATE Address: [place] [address]
--- OUTSIDE RECORDS SUMMARY | 2023-10-27 08:54 | XMS_ITS | Continuity of Care Document ---
Author Organization [facility] Infectious Disease Address [address] [place] [address]- Care Team Providers Care Coutierier Name Role Phone Hanna JASSO, Yohana Newton Primary Care Physician Encounter [facility] Date(s): 04/08/22 - 05/08/22 [facility] Infectious Disease [address] [place] [id number] Allergies, Adverse Reactions, Alerts No Known Allergies [...] Maintenance, 02/15/16 14:03:48, Route to Pharmacy Electronically, [id number], [facility] 3 Start Date: 02/15/16 Stop Date: [...] Maintenance, 02/15/16 14:06:46, Route to Pharmacy Electronically, [id number], [facility] 3 Start Date: 02/15/16 Stop Date: 06/14/16 Status: Ordered nystatin topical [id number] u/gm powder 1 application, Topically, 2 times a day, # 60 Gm, 0 Refills, Maintenance, 04/30/22 10:57:00 EST, Powder, [facility] #[id number], Partial fill upon patient request if the prescription is for a schedule II opioid drug., 1 application Topically 2 ti... Start Date: 04/30/22 Status: Ordered Odefsey oral tablet 1 tablet, By Mouth, Daily, # 30 tablet, 5 Refills, Maintenance, 04/08/22 15:30:00 EDT, Tablet, [facility] #[id number], Partial fill upon patient request if the [...] Team Personnel Name: Leticia Herrera RN Position: [facility] RN Member Role: Primary Care Nurse Name: Yohana Ferreira MD Position: [facility] Physician (General Medicine) Member Role: PCP Address: Address: [address] [place] [address] Name: Alison Sandoval RN Position: [facility] RN Member Role: Primary Care Nurse Name: Sena Crump Position: [facility] RN Member Role: Primary Care Nurse Name: Maren Wan RN Position: [facility] PCO RN Member Role: Primary Care Nurse Name: Sruthi Hauser MD Position: [facility] Infectious Disease MD Member Role: Lifetime Consulting Physician Address: Address: [address] [place] [address] Name: Yulisa Lobo RN Position: [facility] RN Member Role: Primary Care Nurse Care Team Related Persons Name: NONE, GIVEN Address: [place] [address] Name: ANGIE ZARATE Address: home [address] [place], [place] [id number] Name: JENNIFER ZARATE Address: [place] [address]
--- OUTSIDE RECORDS SUMMARY | 2023-10-27 08:54 | XMS_ITS | Continuity of Care Document ---
Author Organization [facility] Address [address] [place] [address]- Care Team Providers Care Template Cutter Name Role Phone Hanna JASSO, Yohana Newton Primary Care Physician [phone] Encounter [facility] Date(s): 04/30/22 - 05/30/22 [facility] [address] [place] [address]- Attending Physician: AdmTamar chaparro Admitting Physician: AdmtrTamar Referring Physician: Admtr, Ar8 Allergies, Adverse Reactions, Alerts No Known Allergies [...] Maintenance, 02/15/16 14:03:48, Route to Pharmacy Electronically, [id number], [facility] 3 Start Date: 02/15/16 Stop Date: 02/09/17 [...] Maintenance, 02/15/16 14:06:46, Route to Pharmacy Electronically, [id number], [facility] 3 Start Date: 02/15/16 Stop Date: 06/14/16 Status: Ordered nystatin topical [id number] u/gm powder 1 application, Topically, 2 times a day, # 60 Gm, 0 Refills, Maintenance, 04/30/22 10:57:00 EST, Powder, [facility] #[id number], Partial fill upon patient request if the prescription is for a schedule II opioid drug., 1 application Topically 2 ti... Start Date: 04/30/22 Status: Ordered Odefsey oral tablet 1 tablet, By Mouth, Daily, # 30 tablet, 5 Refills, Maintenance, 04/08/22 15:30:00 EDT, Tablet, [facility] #[id number], Partial fill upon patient request if the [...] Team Personnel Name: Leticia Herrera RN Position: [facility] RN Member Role: Primary Care Nurse Name: Yohana Ferreira MD Position: [facility] Physician (General Medicine) Member Role: PCP Address: Address: [address] [place] [address] Name: Alison Sandoval RN Position: [facility] RN Member Role: Primary Care Nurse Name: Sena Crump Position: [facility] RN Member Role: Primary Care Nurse Name: Maren Wan RN Position: [facility] PCO RN Member Role: Primary Care Nurse Name: Sruthi Hauser MD Position: [facility] Infectious Disease MD Member Role: Lifetime Consulting Physician Address: Address: [address] [place] [address] [address] Name: Yulisa Lobo RN Position: S RN Member Role: Primary Care Nurse Care Team Related Persons Name: NONE, GIVEN Address: [place] [address] Name: ANGIE ZARATE Address: [place] [address] Name: JENNIFER ZARATE Address: [place] [address]
--- OUTSIDE RECORDS SUMMARY | 2023-10-27 08:54 | XMS_ITS | Continuity of Care Document ---
Author Organization [facility] Address [address] [place] [address]- Care Team Providers Care Spring Repairer Helper Hand Name Role Phone Hanna JASSO, Yohana Newton Primary Care Physician [phone] Encounter [facility] Date(s): 04/09/22 - 05/09/22 [facility] [address] [place] [address]- Allergies, Adverse Reactions, Alerts No Known Allergies [...] Maintenance, 02/15/16 14:03:48, Route to Pharmacy Electronically, [id number], [facility] 3 Start Date: 02/15/16 Stop Date: [...] Maintenance, 02/15/16 14:06:46, Route to Pharmacy Electronically, [id number], [facility] 3 Start Date: 02/15/16 Stop Date: 06/14/16 Status: Ordered nystatin topical [id number] u/gm powder 1 application, Topically, 2 times a day, # 60 Gm, 0 Refills, Maintenance, 04/30/22 10:57:00 EST, Powder, [facility] #[id number], Partial fill upon patient request if the prescription is for a schedule II opioid drug., 1 application Topically 2 ti... Start Date: 04/30/22 Status: Ordered Odefsey oral tablet 1 tablet, By Mouth, Daily, # 30 tablet, 5 Refills, Maintenance, 04/08/22 15:30:00 EDT, Tablet, [facility] #[id number], Partial fill upon patient request if the [...] Team Personnel Name: Leticia Herrera RN Position: [facility] RN Member Role: Primary Care Nurse Name: Yohana Ferreira MD Position: [facility] Physician (General Medicine) Member Role: PCP Address: Address: [address] [place] [address] Name: Alison Sandoval RN Position: [facility] RN Member Role: Primary Care Nurse Name: Sena Crump Position: [facility] RN Member Role: Primary Care Nurse Name: Maren Wan RN Position: [facility] PCO RN Member Role: Primary Care Nurse Name: Sruthi Hauser MD Position: [facility] Infectious Disease MD Member Role: Lifetime Consulting Physician Address: Address: [address] [place] [address] Name: Yulisa Lobo RN Position: [facility] RN Member Role: Primary Care Nurse Care Team Related Persons Name: NONE, GIVEN Address: [place] [address] Name: ANGIE ZARATE Address: home [address] [place] [address] Name: JENNIFER ZARATE Address: [place] [address]
--- OUTSIDE RECORDS SUMMARY | 2023-10-27 08:54 | XMS_ITS | Continuity of Care Document ---
Author Organization [facility] Infectious Disease Address [address] [place] [address]- Care Team Providers Care Steam Tank Operator Name Role Phone Hanna JASSO, Yohana Newton Primary Care Physician [phone] Encounter [facility] Date(s): 02/04/23 - 03/06/23 [facility] Infectious Disease [address] [place] [address] Allergies, Adverse Reactions, Alerts No Known Allergies Immunizations Given and Recorded Vaccine Date Status Refusal Reason tetanus/diphtheria/pertussis, acel(Tdap) 04/23/22 Given tetanus/diphtheria/pertussis, acel(Tdap) 02/19/11 Recorded [id number] 12y+ bivalent booster vax 04/23/22 Recorded influenza [...] Start Date: 04/10/22 Status: Ordered AQUACEL AG AQUACTalentwire AG, See Instructions, # 1 pack/packet, Refills [...] Maintenance, 02/15/16 14:03:48, Route to Pharmacy Electronically, [id number], [facility] 3 Start Date: 02/15/16 Stop [...] Maintenance, 02/15/16 14:06:46, Route to Pharmacy Electronically, [id number], [facility] 3 Start Date: 02/15/16 Stop Date: 06/14/16 Status: Ordered Nystop 002144 u/gm powder See Instructions, APPLY TOPICALY 2 TIMES A DAY, # 60 Gm, 0 Refills, Maintenance, 09/18/22 8:11:00 EDT, [facility] #[id number], 25, APPLY TOPICALY 2 TIMES A DAY, [...] 5 Refills, Maintenance, 09/04/22 16:04:00 EDT, Tablet, [facility] #[id number], Partial fill upon patient request if the [...] Team Personnel Name: Leticia Herrera RN Position: [facility] RN Member Role: Primary Care Nurse Name: Yohana Ferreira MD Position: Reference Physician Member Role: PCP Address: Address: [address] [place] [address], [address] [place] [address]- Name: Alison Sandoval RN Position: [facility] RN Member Role: Primary Care Nurse Name: Maren Wan RN Position: [facility] [place] Nurse Member Role: Primary Care Nurse Name: Sruthi Hauser MD Position: [facility] Physician - Infectious Disease Member Role: Lifetime Consulting Physician Address: Address: [address] [place] [address] [place] [address] Name: Yulisa Lobo RN Position: S RN Member Role: Primary Care Nurse Care Team Related Persons Name: NONE, GIVEN Address: [place] [address] Name: ANGIE ZARATE Address: [place] [address] Name: JENNIFER ZARATE Address: [place] [address]
--- OUTSIDE RECORDS SUMMARY | 2023-10-27 08:54 | XMS_ITS | Continuity of Care Document ---
Author Organization [facility] Infectious Disease Address [address] [place] [address]- Care Team Providers Care Instructor Bus Trolley And Taxi Name Role Phone Hanna JASSO, Yohana Newton Primary Care Physician Encounter [facility] Date(s): 04/08/22 - 05/08/22 [facility] Infect[facility] Disease [address] [place] [address] Allergies, Adverse Reactions, Alerts No Known [...] Maintenance, 02/15/16 14:03:48, Route to Pharmacy Electronically, [id number], [facility] 3 Start Date: 02/15/16 Stop Date: 02/09/17 [...] Maintenance, 02/15/16 14:06:46, Route to Pharmacy Electronically, [id number], [facility] 3 Start Date: 02/15/16 Stop Date: 06/14/16 Status: Ordered nystatin topical 986878 u/gm powder 1 application, Topically, 2 times a day, # 60 Gm, 0 Refills, Maintenance, 04/30/22 10:57:00 EST, Powder, [facility] #[id number], Partial fill upon patient request if the prescription is for a schedule II opioid drug., 1 application Topically 2 ti... Start Date: 04/30/22 Status: Ordered Odefsey oral tablet 1 tablet, By Mouth, Daily, # 30 tablet, 5 Refills, Maintenance, 04/08/22 15:30:00 EDT, Tablet, [facility] #[id number], Partial fill upon patient request if the [...] Team Personnel Name: Leticia Herrera RN Position: [facility] RN Member Role: Primary Care Nurse Name: Yohana Ferreira MD Position: [facility] Physician (General Medicine) Member Role: PCP Address: Address: [address] [place] [address] Name: Alison Sandoval RN Position: [facility] RN Member Role: Primary Care Nurse Name: Sena Crump Position: [facility] RN Member Role: Primary Care Nurse Name: Maren Wan RN Position: [facility] PCO RN Member Role: Primary Care Nurse Name: Sruthi Hauser MD Position: [facility] Infectious Disease MD Member Role: Lifetime Consulting Physician Address: Address: [address] [place] [address] Name: Yulisa Lobo RN Position: [facility] RN Member Role: Primary Care Nurse Care Team Related Persons Name: NONE, GIVEN Address: [place] [address] Name: ANGIE ZARATE Address: home [address] [place] [address] Name: JENNIFER ZARATE Address: [place] [address]
--- OUTSIDE RECORDS SUMMARY | 2023-10-27 08:54 | XMS_ITS | Continuity of Care Document ---
Author Organization [facility] y Address [address] [place] [address]- Care Team Providers Care Financial Sales Manager Name Role Phone Hanna JASSO, Yohana D Primary Care Physician Encounter [facility] Date(s): 10/12/19 - 10/19/19 [facility] [address] [place] [address]- Attending Physician: Javed Thomas MD Admitting Physician: Nader Presley DO Allergies, Adverse Reactions, Alerts Substance Reaction Severity Status NKA Active Medications aspirin 81 mg oral delayed release tablet 81 mg, By Mouth, Daily, with food, # 30 tablet, Refills 11, Tot. Refills 11, Maintenance, 02/15/16 14:03:48, Route to Pharmacy Electronically, [id number], [facility] 3 Start Date: 02/15/16 Stop Date: 02/09/17 [...] Maintenance, 02/15/16 14:06:46, Route to Pharmacy Electronically, [id number], [facility] 3 Start Date: 02/15/16 Stop Date: 06/14/16 Status: Ordered Odefsey oral tablet 1 tablet, By Mouth, Daily, # 30 tablet, 0 Refills, Maintenance, 09/04/19 17:05:00 EDT, Tablet Start Date: 09/04/19 Status: Ordered Odefsey oral tablet 1 tablet, By Mouth, Daily, with meals, # 30 tablet, 5 Refills, Maintenance, 10/17/19 13:52:00 EDT, Tablet, [facility] #[id number], 1 tablet By Mouth Daily,x30 days,Instr:with meals, [...] disease)(Confirmed) Active History of HIV infection(Confirmed) Active Acquired polycythemia(Confirmed) Active Social History Social History Type Response Smoking Status Never smoker entered on: 02/20/16 Sex
--- OUTSIDE RECORDS SUMMARY | 2023-10-27 08:54 | XMS_ITS | Continuity of Care Document ---
Author Organization [facility] Address [address] [place] [address]- Care Team Providers Care Land Law Examiner Name Role Phone Hanna JASSO, Yohana Newton Primary Care Physician Encounter [facility] Date(s): 12/07/19 - 01/06/20 [facility] [address] [place] [address]- [facility] Allergies, Adverse Reactions, Alerts Substance Reaction Severity Status NKA Active Medications aspirin 81 mg oral delayed release tablet 81 mg, By Mouth, Daily, with food, # 30 tablet, Refills 11, Tot. Refills 11, Maintenance, 02/15/16 14:03:48, Route to Pharmacy Electronically, [id number], [facility] 3 Start Date: 02/15/16 Stop [...] Maintenance, 02/15/16 14:06:46, Route to Pharmacy Electronically, [id number], [facility] 3 Start Date: 02/15/16 Stop Date: 06/14/16 Status: Ordered Odefsey oral tablet 1 tablet, By Mouth, Daily, # 30 tablet, 0 Refills, Maintenance, 09/04/19 17:05:00 EDT, Tablet Start Date: 09/04/19 Status: Ordered Odefsey oral tablet 1 tablet, By Mouth, Daily, with meals, # 30 tablet, 5 Refills, Maintenance, 10/17/19 13:52:00 EDT, Tablet, [facility] #[id number], 1 tablet By Mouth Daily,x30 days,Instr:with meals, [...]
--- OUTSIDE RECORDS SUMMARY | 2023-10-27 08:54 | XMS_ITS | Continuity of Care Document ---
Author Organization [facility] Address [address] [place] [address]- Care Team Providers Care Certified Ethical Hacker Name Role Phone Hanna JASSO, Yohana Newton Primary Care Physician [place] [facility] [place](s[place] 03/12/23 - 04/11/23 [facility] [address] [place] [address] Allergies, Adverse Reactions, Alerts No Known Allergies Immunizations Given and Recorded Vaccine Date Status Refusal Reason tetanus/diphtheria/pertussis, acel(Tdap) 04/23/22 Given tetanus/diphtheria/pertussis, acel(Tdap) 02/19/11 Recorded [id number] 12y+ bivalent booster vax 04/23/22 Recorded influenza [...] Maintenance, 02/15/16 14:03:48, Route to Pharmacy Electronically, [id number], [facility] 3 Start Date: 02/15/16 Stop Date: [...] Maintenance, 02/15/16 14:06:46, Route to Pharmacy Electronically, [id number], [facility] 3 Start Date: 02/15/16 Stop Date: 06/14/16 Status: Ordered Nystop [id number] u/gm powder See Instructions, APPLY TOPICALY 2 TIMES A DAY, # 60 Gm, 0 Refills, Maintenance, 09/18/22 8:11:00 EDT, [id number], 25, APPLY TOPICALY 2 TIMES A DAY, [...] 5 Refills, Maintenance, 03/12/23 10:59:00 EDT, Tablet, [facility][id number], Partial fill upon patient request if the [...] Team Personnel Name: Leticia Herrera RN Position: [facility] RN Member Role: Primary Care Nurse Name: Yohana Ferreira MD Position: Reference Physician Member Role: PCP Address: Address: [address] [place] [address], [address] [place] [address]- Name: Alison Sandoval RN Position: [facility] RN Member Role: Primary Care Nurse Name: Maren Wan RN Position: [facility] [place] Nurse Member Role: Primary Care Nurse Name: Sruthi Hauser MD Position: [facility] Physician - Infectious Disease Member Role: Lifetime Consulting Physician Address: Address: [address] [place] [address] [place] [address]- [place] Name: Yulisa Lobo RN Position: S RN Member Role: Primary Care Nurse Care Team Related Persons Name: NONE, GIVEN Address: [place] [address] Name: ANGIE ZARATE Address: [place] [address] Name: JENNIFER ZARATE Address: [place] [address]
--- OUTSIDE RECORDS SUMMARY | 2023-10-27 08:54 | XMS_ITS | Continuity of Care Document ---
Author Organization [facility] ter Address [address] [place] [address]- Care Team Providers Care Modern Dancer Name Role Phone Hanna JASSO, Yohana Newton Primary Care Physician Encounter [facility] Date(s): 03/23/22 - 04/22/[address] [address] Attending Physician: Not on Staff, Attending MD Admitting Physician: Not on Staff, Admitting MD Referring Physician: Not on Staff, Referring MD Allergies, Adverse Reactions, Alerts No Known Allergies Immunizations Given and Recorded Vaccine Date Status Refusal Reason influenza virus vaccine, inactivated 03/23/22 Give n [...] 05/21/11 Recorded tetanus/diphtheria/pertussis, acel(Tdap) 02/19/11 Recorded Medications 0.25% ACETIC ACID IRRIGATION, US[ [...] Maintenance, 02/15/16 14:03:48, Route to Pharmacy Electronically, [id number], [facility] 3 Start Date: 02/15/16 Stop Date: 02/09/17 [...] Maintenance, 02/15/16 14:06:46, Route to Pharmacy Electronically, [id number], [facility] Start Date: 02/15/16 Stop Date: 06/14/16 Status: Ordered Odefsey oral tablet 1 tablet, By Mouth, Daily, # 30 tablet, 5 Refills, Maintenance, 04/08/22 15:30:00 EDT, Tablet, [facility] #[id number], Partial fill upon patient request if the [...] Team Personnel Name: Leticia Herrera RN Position: [facility] RN Member Role: Primary Care Nurse Name: Yohana Ferreira MD Position: [facility] Physician (General Medicine) Member Role: PCP Address: Address: [address] [place] [address] Name: Alison Sandoval RN Position: [facility] RN Member Role: Primary Care Nurse Name: Sena Crump Position: [facility] RN Member Role: Primary Care Nurse Name: Maren Wan RN Position: [facility] PCO RN Member Role: Primary Care Nurse Name: Sruthi Hauser MD Position: [facility] Infectious Disease MD Member Role: Lifetime Consulting Physician Address: Address: [address] [place] [address] [place], [place] [address] Name: Yulisa Lobo RN Position: [facility] RN Member Role: Primary Care Nurse Care Team Related Persons Name: NONE, GIVEN Address: [address] [address] Name: ANGIE ZARATE Address: home [address] [place] [address] Name: JENNIFER ZARATE Address: [address] [address]
--- OUTSIDE RECORDS SUMMARY | 2023-10-27 08:54 | XMS_ITS | Continuity of Care Document ---
Author Organization [facility] Address [address] [place] [address]- Care Team Providers Care Ends Breakage Clerk Name Role Phone Hanna JASSO, Yohana Newton Primary Care Physician [facility]counter [facility] Date(s): 04/15/23 - 05/15/23 [facility] [address] [place] [address]- Attending Physician: Tamar Rodriguez Admitting Physician: AdmtrTamar Referring Physician: Admtr ArDileep Allergies, Adverse Reactions, Alerts No Known Allergies Immunizations Given and Recorded Vaccine Date Status Refusal Reason tetanus/diphtheria/pertussis, acel(Tdap) 04/23/22 Given tetanus/diphtheria/pertussis, acel(Tdap) 02/19/11 Recorded [id number] 12y+ bivalent booster vax 04/23/22 Recorded influenza [...] Maintenance, 02/15/16 14:03:48, Route to Pharmacy Electronically, [id number], [facility] 3 Start Date: 02/15/16 Stop Date: 02/09/17 [...] Maintenance, 02/15/16 14:06:46, Route to Pharmacy Electronically, [id number], [facility] Start Date: 02/15/16 Stop Date: 06/14/16 Status: Ordered Nystop [id number] u/gm powder See Instructions, APPLY TOPICALY 2 TIMES A DAY, # 60 Gm, 0 Refills, Maintenance, 09/18/22 8:11:00 EDT, [facility] #[id number], 25, APPLY TOPICALY 2 TIMES A DAY, [...] 5 Refills, Maintenance, 03/12/23 10:59:00 EDT, Tablet, [facility] #[id number], Partial fill upon patient request if the [...] Team Personnel Name: Leticia Herrera RN Position: [facility] RN Member Role: Primary Care Nurse Name: Yohana Ferreira MD Position: Reference Physician Member Role: PCP Address: Address: [address] [place] [address], [facility] [address] [place], [place], [place] [address] Name: Alison Sandoval RN Position: [facility] RN Member Role: Primary Care Nurse Name: Maren Wan RN Position: [facility] AMB Nurse Member Role: Primary Care Nurse Name: Sruthi Hauser MD Position: [facility] Physician - Infectious Disease Member Role: Lifetime Consulting Physician Address: Address: [address] [place] [address] Infectious Disease[place] [address] Name: Yulisa Lobo RN Position: [facility] RN Member Role: Primary Care Nurse Care Team Related Persons Name: NONE, GIVEN Address: [place] [address] Name: ANGIE ZARATE Address: home [address] [place] [address] Name: JENNIFER ZARATE Address: [place] [address]
--- OUTSIDE RECORDS SUMMARY | 2023-10-27 08:54 | XMS_ITS | Continuity of Care Document ---
Author Organization [facility] Address [address] [place] [address]- Care Team Providers Care Loader Technician Name Role Phone Hanna JASSO, Yohana Newton Primary Care Physician Encounter [facility] Date(s): 04/20/20 - 05/20/20 [facility]/[address] [address]- Allergies, Adverse Reactions, Alerts Substance Reaction Severity Status NKA Active Medications aspirin 81 mg oral delayed release tablet 81 mg, By Mouth, Daily, with food, # 30 tablet, Refills 11, Tot. Refills 11, Maintenance, 02/15/16 14:03:48, Route to Pharmacy Electronically, [id number], [facility] 3 Start Date: 02/15/16 Stop [...] Maintenance, 02/15/16 14:06:46, Route to Pharmacy Electronically, [id number], [facility] 3 Start Date: 02/15/16 Stop Date: 06/14/16 Status: Ordered Odefsey oral tablet 1 tablet, By Mouth, Daily, # 30 tablet, 0 Refills, Maintenance, 09/04/19 17:05:00 EDT, Tablet Start Date: 09/04/19 Status: Ordered Odefsey oral tablet 1 tablet, By Mouth, Daily, with meals, # 30 tablet, 5 Refills, Maintenance, 04/20/20 11:45:00 EST, Tablet, [facility] #[id number], 1 tablet By Mouth Daily,x30 days,Instr:with meals, [...]
--- OUTSIDE RECORDS SUMMARY | 2023-10-27 08:54 | XMS_ITS | Continuity of Care Document ---
Author Organization [facility] Address [address] [place] [address]- Care Team Providers Care Combination Man Name Role Phone Hanna JASSO, Yohana Newton Primary Care Physician [phone] Encounter [facility] Date(s): 02/29/20 - 03/30/20 [facility] [address] [place] [address]- [facility] Allergies, Adverse Reactions, Alerts Substance Reaction Severity Status NKA Active Medications aspirin 81 mg oral delayed release tablet 81 mg, By Mouth, Daily, with food, # 30 tablet, Refills 11, Tot. Refills 11, Maintenance, 02/15/16 14:03:48, Route to Pharmacy Electronically, [id number], [facility] 3 Start Date: 02/15/16 Stop [...] Maintenance, 02/15/16 14:06:46, Route to Pharmacy Electronically, [id number], [facility] 3 Start Date: 02/15/16 Stop Date: 06/14/16 Status: Ordered Odefsey oral tablet 1 tablet, By Mouth, Daily, # 30 tablet, 0 Refills, Maintenance, 09/04/19 17:05:00 EDT, Tablet Start Date: 09/04/19 Status: Ordered Odefsey oral tablet 1 tablet, By Mouth, Daily, with meals, # 30 tablet, 5 Refills, Maintenance, 10/17/19 13:52:00 EDT, Tablet, [facility] #[id number], 1 tablet By Mouth Daily,x30 days,Instr:with meals, [...]
--- OUTSIDE RECORDS SUMMARY | 2023-10-27 08:54 | XMS_ITS | Continuity of Care Document ---
Author Organization [facility] Address [address] [place] [address]- Care Team Providers Care Novelties Sales Representative Name Role Phone Hanna JASSO, Yohana Newton Primary Care Physician Encounter [facility] Date(s): 04/16/20 - 05/16/20 [facility] [address] [place], [place] [address] Allergies, Adverse Reactions, Alerts Substance Reaction Severity Status NKA Active Medications aspirin 81 mg oral delayed release tablet 81 mg, By Mouth, Daily, with food, # 30 tablet, Refills 11, Tot. Refills 11, Maintenance, 02/15/16 14:03:48, Route to Pharmacy Electronically, [id number], [facility] 3 Start Date: 02/15/16 Stop Date: [...] Maintenance, 02/15/16 14:06:46, Route to Pharmacy Electronically, [id number], [facility] Start Date: 02/15/16 Stop Date: 06/14/16 Status: Ordered Odefsey oral tablet 1 tablet, By Mouth, Daily, # 30 tablet, 0 Refills, Maintenance, 09/04/19 17:05:00 EDT, Tablet Start Date: 09/04/19 Status: Ordered Odefsey oral tablet 1 tablet, By Mouth, Daily, with meals, # 30 tablet, 5 Refills, Maintenance, 04/20/20 11:45:00 EST, Tablet, [facility] #[id number], 1 tablet By Mouth Daily,x30 days,Instr:with meals, [...]
--- OUTSIDE RECORDS SUMMARY | 2023-10-27 08:54 | XMS_ITS | Continuity of Care Document ---
Author Organization [facility] ter Address [address] [place] [address]- Care Team Providers Care Registration Representative Name Role Phone Hanna JASSO, Yohana Newton Primary Care Physician Encounter [facility] Date(s): 09/02/19 - 09/07/[address] [address]- [facility] Encounter Diagnosis ACS (acute coronary syndrome)(Final) - 09/03/19 Other chest pain(Final) - Discharge Disposition: A-D/C Home Attending Physician: Corey Kaur MD Admitting Physician: Gael Paredes MD Referring Physician: Not on Staff, Referring MD Allergies, Adverse Reactions, Alerts Substance Reaction Severity Status NKA Active Medications aspirin 81 mg oral delayed release tablet 81 mg, By Mouth, Daily, with food, # 30 tablet, Refills 11, Tot. Refills 11, Maintenance, 02/15/16 14:03:48, Route to Pharmacy Electronically, [id number], [facility] 3 Start Date: 02/15/16 Stop [...] Maintenance, 02/15/16 14:06:46, Route to Pharmacy Electronically, [id number], [facility] 3 Start Date: 02/15/16 Stop Date: 06/14/16 Status: Ordered Odefsey oral tablet 1 tablet, By Mouth, Daily, # 30 tablet, 0 Refills, Maintenance, 09/04/19 17:05:00 EDT, Tablet Start Date: 09/04/19 Status: Ordered rosuvastatin 20 mg oral tablet 1 tablet = 20 mg, By Mouth, Daily, # 30 tablet, 0 Refills, Maintenance, 12/31/17 11:55:41 EDT, Tablet Start Date: 12/31/17 Status: Ordered Results Radiology Reports * Exam Date Time Procedure Performing Provider Status 09/03/19 12:29 AM Chest Portable Nitish Herron; Aut h (Verified) Notes: (Chest Portable) Reason For Exam: chest pain;Pleuritic Pain RESULT: Chest Portable Chest Portable INDICATION: Midsternal chest pressure, sweating, dyspnea since 2 hours prior to presentation; no leukocytosis, normal pro-BNP. History history of HIV, on HAART. COMPARISON: Chest x-ray 02/13/2016 and 03/19/2009 FINDINGS: LINES AND TUBES: None. LUNGS AND PLEURA: Low lung volumes with mild left basilar atelectasis. Otherwise, lungs are clear. No pleural effusion. No pneumothorax. HEART, MEDIASTINUM AND LUIS ENRIQUE: Heart is normal in size. Thoracic aorta is mildly tortuous. BONES AND SOFT TISSUES: No acute abnormality. IMPRESSION: No acute abnormality. Wet read provided via cliniq.ly at 2:24 AM on 09/03/2019. I have personally reviewed the images and I agree with this report. WSN: [id number] Ordering Physician: Zhane Riggins Dictated By: Clive Nnio DO Dictated Date/Time: 09/03/19 7:33 am Reviewed By: Andrei Still MD Signed By: Andrei Still MD Signed Date/Time: 09/03/19 7:38 am Transcribed By: MARY JO Transcribed Date/Time: 09/03/19 2:25 am Vital Signs Most recent to oldest [Reference Range]: 1 2 3 Height 188 cm (09/07/19 7:54 AM) 188 cm (09/07/19 2:06 AM) 188 cm (09/06/19 8:04 PM) Weight 127.5 kg (09/06/19 7:35 AM) 127.5 kg (09/06/19 5:50 AM) 129.8 kg (09/05/19 6:52 AM) Oxygen Saturation [94-100 %] 97 % (09/07/19 7:54 AM) 97 % (09/07/19 2:06 AM) 94 % (09/06/19 8:04 PM) Pulse Rate [55-90 bpm] 74 bpm (09/07/19 7:54 AM) 66 bpm (09/07/19 2:06 AM) 84 bpm (09/06/19 8:04 PM) Body Mass Index [18.5-24.99] 36.72 *>HHI* (09/03/19 9:39 AM) Blood Pressure [90-138/55-84 mm Hg] 122/83mm Hg (09/07/19 7:54 AM) 113/76mm Hg (09/07/19 2:06 AM) 123/85mm Hg (09/06/19 8:04 PM) Respiratory Rate [16-30 br/min] 18 br/min (09/07/19 7:54 AM) 17 br/min (09/07/19 2:06 AM) 17 br/min (09/06/19 8:04 PM) Temperature [96.8-100.4 DegF] 97.7 DegF (09/07/19 7:54 AM) 97.2 DegF (09/07/19 2:06 AM) 98.2 DegF (09/06/19 8:04 PM) Mode of Delivery (Oxygen) Room air (09/07/19 7:54 AM) Room air (09/07/19 2:06 AM) Room air (09/06/19 8:04 PM) Blood pressure sites Arm, left (09/07/19 7:54 AM) Arm, left (09/07/19 2:06 AM) Arm, left (09/06/19 8:04 PM) Temperature Route Temporal (09/07/19 7:54 AM) Temporal (09/07/19 2:06 AM) Oral (09/06/19 8:04 PM) Dry Weight 129.8 kg (09/03/19 9:39 AM) Weight Obtained Via Standing scale (09/06/19 5:50 AM) Bed scale (09/05/19 5:00 AM) Social History Social History Type Response Smoking Status Never smoker entered on: 02/20/16 Sex
--- OUTSIDE RECORDS SUMMARY | 2023-10-27 08:54 | XMS_ITS | Continuity of Care Document ---
Author Organization [facility] Address [address] [place] [address]- Care Team Providers Care Sr. Director Product Management Name Role Phone Hanna JASSO, Yohana Newton Primary Care Physician [facility]counter [facility] Date(s): 07/22/23 - 08/21/23 [facility] [address] [place] [address]- Allergies, Adverse Reactions, Alerts No Known Allergies Immunizations Given and Recorded Vaccine Date Status Refusal Reason tetanus/diphtheria/pertussis, acel(Tdap) 04/23/22 Given tetanus/diphtheria/pertussis, acel(Tdap) 02/19/11 Recorded [id number] 12y+ bivalent booster vax 04/23/22 Recorded influenza [...] Maintenance, 02/15/16 14:03:48, Route to Pharmacy Electronically, [id number], [facility] Start Date: 02/15/16 Stop Date: [...] Maintenance, 02/15/16 14:06:46, Route to Pharmacy Electronically, [id number], [facility] 3 Start Date: 02/15/16 Stop Date: 06/14/16 Status: Ordered Nystop [id number] u/gm powder See Instructions, APPLY TOPICALY 2 TIMES A DAY, # 60 Gm, 0 Refills, Maintenance, 09/18/22 8:11:00 EDT, [facility] #[id number], 25, APPLY TOPICALY 2 TIMES A DAY, [...] 5 Refills, Maintenance, 03/12/23 10:59:00 EDT, Tablet, [facility] #[id number], Partial fill upon patient request if the [...] Reference Physician Member Role: PCP Address: Address: [address] [place] [address], [address] [place], [place], [place] [address] Name: Alison Sandoval RN Position: [facility] RN Member Role: Primary Care Nurse Name: Maren Wan RN Position: [facility] AMB Nurse Member Role: Primary Care Nurse Name: Sruthi Hauser MD Position: [facility] Physician - Infectious Disease Member Role: Lifetime Consulting Physician Address: Address: [address] [place] [address] [place], [place] [address] Name: Yulisa Lobo RN Position: S RN Member Role: Primary Care Nurse Care Team Related Persons Name: NONE, GIVEN Address: [place] [address] Name: ANGIE ZARATE Address: home [address] [place] [address] Name: JENNIFER ZARATE Address: [place] [address]
--- OUTSIDE RECORDS SUMMARY | 2023-10-27 08:54 | XMS_ITS | Continuity of Care Document ---
Author Organization [facility] Address [address] [place] [address]- Care Team Providers Care Pipeline Operator Name Role Phone Yohana Ferreira MD Primary Care Physician Encounter [facility] Date(s): 12/03/20 - 12/10/20 [facility] [address] [place] [address]- Encounter Diagnosis Sinusitis(Discharge Diagnosis) - 12/03/20 Attending Physician: Bravo Welch MD Referring Physician: Yohana Ferreira MD Allergies, Adverse Reactions, Alerts Substance Reaction Severity Status NKA Active Immunizations Given and Recorded Vaccine Date Status Refusal Reason SARS-CoV-2 (COVID-19) mRNA BNT-162b2 vac 07/17/20 Recorded [...] Maintenance, 02/15/16 14:03:48, Route to Pharmacy Electronically, [id number], [facility] Start Date: 02/15/16 Stop [...] Maintenance, 02/15/16 14:06:46, Route to Pharmacy Electronically, [id number], [facility] Start Date: 02/15/16 Stop Date: 06/14/16 Status: Ordered Odefsey oral tablet 1 tablet, By Mouth, Daily, # 30 tablet, 0 Refills, Maintenance, 09/04/19 17:05:00 EDT, Tablet Start Date: 09/04/19 Status: Ordered Odefsey oral tablet 1 tablet, By Mouth, Daily, with meals, # 30 tablet, 5 Refills, Maintenance, 10/05/20 12:30:00 EDT, Tablet, [facility] #[id number], 1 tablet By Mouth Daily,x30 days,Instr:with meals, 183.5, cm, 02/29/20 15:03:00 EDT, Height, 132.2, kg, 02/29/20 15... Start Date: 10/05/20 Stop Date: 04/03/21 Status: Ordered rosuvastatin 20 mg oral tablet [...] (obstructive sleep apnea)(Confirmed) Active Acquired polycythemia(Confirmed) Active Diagnosis Diagnosis Type Effective Dates Health Status Clini kina Service Informant Sinusitis Discharge Diagnosis 12/03/20 Vital Signs Most recent to oldest [Reference Range]: 1 Height 183.5 cm (12/03/20 4:54 PM) Oxygen Saturation [94-100 %] 98 % (12/03/20 4:54 PM) Pulse Rate [55-90 bpm] 60 bpm (12/03/20 4:54 PM) Blood Pressure [90-138/55-84 mm Hg] 126/ 78mm Hg (12/03/20 4:54 PM) Respiratory Rate [16-30 br/min] 23 br/mi n (12/03/20 4:54 PM) Temperature [96.8-100.4 DegF] 98.7 DegF (12/03/20 4:54 PM) Mode of Delivery (Oxygen) Room air (12/03/20 4:54 PM) Blood pressure sites Arm, left (12/03/20 4:54 PM) Temperature Route Temporal (12/03/20 4:54 PM) Social History Social History Type Response Smoking Status Never smoker entered on: 02/20/16 Sex
--- OUTSIDE RECORDS SUMMARY | 2023-10-27 08:54 | XMS_ITS | Continuity of Care Document ---
Author Organization [facility] Address [address] [place] [address]- Care Team Providers Care Skein Winding Operator Name Role Phone Hanna JASSO, Yohana Newton Primary Care Physician [phone] Encounter [facility] Date(s): 06/20/20 - 07/20/20 [facility] [address] [place] [id number] Attending Physician: Tamar Rodriguez Admitting Physician: AdmtrTamar Referring Physician: Admtr, Ar8 Allergies, Adverse Reactions, Alerts Substance Reaction Severity Status NKA Active Medications aspirin 81 mg oral delayed release tablet 81 mg, By Mouth, Daily, with food, # 30 tablet, Refills 11, Tot. Refills 11, Maintenance, 02/15/16 14:03:48, Route to Pharmacy Electronically, [id number], [facility] Start Date: 02/15/16 Stop [...] Maintenance, 02/15/16 14:06:46, Route to Pharmacy Electronically, [id number], [facility] Start Date: 02/15/16 Stop Date: 06/14/16 Status: Ordered Odefsey oral tablet 1 tablet, By Mouth, Daily, # 30 tablet, 0 Refills, Maintenance, 09/04/19 17:05:00 EDT, Tablet Start Date: 09/04/19 Status: Ordered Odefsey oral tablet 1 tablet, By Mouth, Daily, with meals, # 30 tablet, 5 Refills, Maintenance, 04/20/20 11:45:00 EST, Tablet, [facility] #[id number], 1 tablet By Mouth Daily,x30 days,Instr:with meals, [...]
--- OUTSIDE RECORDS SUMMARY | 2023-10-27 08:54 | XMS_ITS | Continuity of Care Document ---
Author Organization [facility] Address [address] [place] [address]- Care Team Providers Care Perl Developer Name Role Phone Hanna JASSO, Yohana Newton Primary Care Physician En[place] [facility] Date(s): 09/18/20 - 10/18/20 [facility] [address] [address] Attending Physician: Tamar Rodriguez Admitting Physician: AdmtrTamar Referring Physician: Admtr, Ar8 Allergies, Adverse Reactions, Alerts Substance Reaction Severity Status NKA Active Medications aspirin 81 mg oral delayed release tablet 81 mg, By Mouth, Daily, with food, # 30 tablet, Refills 11, Tot. Refills 11, Maintenance, 02/15/16 14:03:48, Route to Pharmacy Electronically, [id number], [facility] Start Date: 02/15/16 Stop [...] Maintenance, 02/15/16 14:06:46, Route to Pharmacy Electronically, [id number], [facility] Start Date: 02/15/16 Stop Date: 06/14/16 Status: Ordered Odefsey oral tablet 1 tablet, By Mouth, Daily, # 30 tablet, 0 Refills, Maintenance, 03/29/20 17:05:00 EDT, Tablet Start Date: 09/04/19 Status: Ordered Odefsey oral tablet 1 tablet, By Mouth, Daily, with meals, # 30 tablet, 5 Refills, Maintenance, 10/05/20 12:30:00 EDT, Tablet, [facility] #[id number], 1 tablet By Mouth Daily,x30 days,Instr:with meals, [...]
--- OUTSIDE RECORDS SUMMARY | 2023-10-27 08:54 | XMS_ITS | Continuity of Care Document ---
Author Organization [facility] Address [address] [place] [address]- Care Team Providers Care Driver/Merchandiser Name Role Phone Hanna JASSO, Yohana Newton Primary Care Physician [phone] Encounter [facility] [place](s): 05/23/22 - 06/22/22 [facility] [address] [place] [id number] Allergies, Adverse Reactions, Alerts No [...] Dry Weight Start Date: 04/10/22 Status: Ordered [employer], See Instructions, # 1 pack/packet, Refills 3, [...] Maintenance, 02/15/16 14:03:48, Route to Pharmacy Electronically, [id number], [facility] 3 Start Date: 02/15/16 Stop [...] Maintenance, 02/15/16 14:06:46, Route to Pharmacy Electronically, [id number], [facility] 3 Start Date: 02/15/16 Stop Date: 06/14/16 Status: Ordered nystatin topical 137393 u/gm powder 1 application, Topically, 2 times a day, # 60 Gm, 0 Refills, Maintenance, 04/30/22 10:57:00 EST, Powder, [facility][id number], Partial fill upon patient request if the prescription is for a schedule II opioid drug., 1 application Topically 2 ti... Start Date: 04/30/22 Status: Ordered Odefsey oral tablet 1 tablet, By Mouth, Daily, # 30 tablet, 5 Refills, Maintenance, 04/08/22 15:30:00 EDT, Tablet, [facility][id number], Partial fill upon patient request if the [...] Team Personnel Name: Leticia Herrera RN Position: [facility] RN Member Role: Primary Care Nurse Name: Yohana Ferreira MD Position: [facility] Physician (General Medicine) Member Role: PCP Address: Address: [address] [place] [address] Name: Alison Sandoval RN Position: [facility] RN Member Role: Primary Care Nurse Name: Sena Crump Position: [facility] RN Member Role: Primary Care Nurse Name: Maren Wan RN Position: [facility] PCO RN Member Role: Primary Care Nurse Name: Sruthi Hauser MD Position: [facility] Infectious Disease MD Member Role: Lifetime Consulting Physician Address: Address: [address] [place] [address] Name: Yulisa Lobo RN Position: [facility] RN Member Role: Primary Care Nurse Care Team Related Persons Name: NONE, GIVEN Address: home [address] [place] [id number] Name: ANGIE ZARATE Address: [place] [address] Name: JENNIFER ZARATE Address: [place] [address]
--- OUTSIDE RECORDS SUMMARY | 2023-10-27 08:54 | XMS_ITS | Continuity of Care Document ---
Author Organization [facility] Address [address] [place] [address]- Care Team Providers Care Laboratory Associate Name Role Phone Hanna JASSO, Yohana Newton Primary Care Physician [phone] [facility] [place] Date(s): 05/28/22 - 06/27/22 [facility] [address] [place] [id number] Allergies, Adverse Reactions, Alerts [...] Dry Weight Start Date: 04/10/22 Status: Ordered [employer], See Instructions, # 1 pack/packet, Refills 3, [...] Maintenance, 02/15/16 14:03:48, Route to Pharmacy Electronically, [id number], [facility] 3 Start Date: 02/15/16 Stop [...] Maintenance, 02/15/16 14:06:46, Route to Pharmacy Electronically, [id number], [facility] 3 Start Date: 02/15/16 Stop Date: 06/14/16 Status: Ordered nystatin topical 352283 u/gm powder 1 application, Topically, 2 times a day, # 60 Gm, 0 Refills, Maintenance, 04/30/22 10:57:00 EST, Powder, [facility] #[id number], Partial fill upon patient request if the prescription is for a schedule II opioid drug., 1 application Topically 2 ti... Start Date: 04/30/22 Status: Ordered Odefsey oral tablet 1 tablet, By Mouth, Daily, # 30 tablet, 5 Refills, Maintenance, 04/08/22 15:30:00 EDT, Tablet, [facility] #[id number], Partial fill upon patient request if the [...] Team Personnel Name: Leticia Herrera RN Position: [facility] RN Member Role: Primary Care Nurse Name: Yohana Ferreira MD Position: [facility] Physician (General Medicine) Member Role: PCP Address: Address: [address] [place] [address] Name: Alison Sandoval RN Position: [facility] RN Member Role: Primary Care Nurse Name: Sena Crump Position: [facility] RN Member Role: Primary Care Nurse Name: Maren Wan RN Position: [facility] PCO RN Member Role: Primary Care Nurse Name: Sruthi Hauser MD Position: [facility] Infectious Disease MD Member Role: Lifetime Consulting Physician Address: Address: [address] [place] [address] Name: Yulisa Lobo RN Position: [facility] RN Member Role: Primary Care Nurse Care Team Related Persons Name: NONE, GIVEN Address: home [address] [place] [address] [place] [address] Name: ANGIE ZARATE Address: [place] [address] Name: JENNIFER ZARATE Address: [place] [address]
--- OUTSIDE RECORDS SUMMARY | 2023-10-27 08:54 | XMS_ITS | Continuity of Care Document ---
Author Organization [facility] Address [address] [place] [address]- Care Team Providers Care Dry Wall Sprayer Name Role Phone Hanna JASSO, Yohana Newton Primary Care Physician Encounter [facility] [place] Date(s): 01/01/22 - 01/31/22 [facility] [address] [place] [address] Allergies, Adverse Reactions, Alerts No [...] Maintenance, 02/15/16 14:03:48, Route to Pharmacy Electronically, [id number], [facility] Start Date: 02/15/16 Stop Date: [...] Maintenance, 02/15/16 14:06:46, Route to Pharmacy Electronically, [id number], [facility] 3 Start Date: 02/15/16 Stop Date: 06/14/16 Status: Ordered Odefsey oral tablet 1 tablet, By Mouth, Daily, # 30 tablet, 0 Refills, Maintenance, 09/04/19 17:05:00 EDT, Tablet Start Date: 09/04/19 Status: Ordered Odefsey oral tablet 1 tablet, By Mouth, Daily, with meals, # 30 tablet, 5 Refills, Maintenance, 10/14/21 13:56:00 EDT, Tablet, [facility] #[id number], 1 tablet By Mouth Daily,x30 days,Instr:with meals, [...] disease)(Confirmed) Active History of HIV infection(Confirmed) Active Obese class II(Confirmed) Active KINSEY (obstructive sleep apnea)(Confirmed) Active Acquired polycythemia(Confirmed) Active Social History Social History Type Response Smoking Status Never smoker entered on: 02/20/16 Sex Care Team Personnel Name: Hanna JASSO, Yohana Newton Address: [address] [place] [address] [place] [address]
--- OUTSIDE RECORDS SUMMARY | 2023-10-27 08:55 | XMS_ITS | Continuity of Care Document ---
Author Organization [facility] ter Address [address] [place] [address]- Care Team Providers Care Printer Technician Name Role Phone Hanna JASSO, Yohana Lamar Primary Care Physician Encounter [place] Date(s): 03/20/22 - 03/23/[address] [address] Encounter Diagnosis Cellulitis of right foot(Final) - 03/20/22 Discharge Disposition: A-D/C Home Attending Physician: Nella Snow MD Admitting Physician: Paulina Alexandre MD Referring Physician: Not on Staff, Referring [...] Maintenance, 02/15/16 14:03:48, Route to Pharmacy Electronically, [id number], [facility] 3 Start Date: 02/15/16 Stop Date: 02/09/17 Status: Ordered doxycycline monohydrate 100 mg oral tablet 1 tablet = 100 mg, By Mouth, 2 times a day, for 7 days, # 14 tablet, 0 Refills, Acute 03/30/22 10:43:00 EDT, 03/23/22 10:43:00 EDT, Tablet, [facility] #[id number], Partial fill upon patient request if the prescription is for a schedule II opioid... Start Date: 03/23/22 Stop Date: 03/30/22 Status: Ordered fenofibrate 54 mg oral tablet [...] Maintenance, 02/15/16 14:06:46, Route to Pharmacy Electronically, [id number], [facility] 3 Start Date: 02/15/16 Stop Date: 06/14/16 Status: Ordered metoprolol 50 mg oral tablet 50 mg, Tablet, By Mouth, 03/22/22 21:00:00 EDT Start Date: 03/22/22 Stop Date: 03/22/22 Status: Completed metoprolol 50 mg oral tablet 50 mg, Tablet, By Mouth, 03/23/22 9:00:00 EDT Start Date: 03/23/22 Stop Date: 03/23/22 Status: Completed MorPHINE Inj 2 mg, Injection, IV Push Slowly, Every 4 hours, PRN for Pain , Moderate, Routine, 03/20/22 22:57:00EDT Start Date: 03/20/22 Stop Date: 03/24/22 Status: Discontinued Odefsey oral tablet 1 tablet, By Mouth, Daily at bedtime, # 30 tablet, 0 Refills, Maintenance, 09/04/19 17:05:00 EDT, Tablet Start Date: 09/04/19 Status: Ordered rosuvastatin 20 mg oral tablet 1 tablet = 20 mg, By Mouth, Daily at bedtime, # 30 tablet, 0 Refills, Maintenance, 12/31/17 11:55:41 EDT, Tablet Start Date: 12/31/17 Status: Ordered saccharomyces boulardii lyo 250 mg oral capsule 1 capsule = 250 mg, By Mouth, 2 times a day, for 14 days, # 28 capsule, 0 Refills, Acute 04/06/22 10:45:00 EDT, 03/23/22 10:45:00 EDT, Capsule, [facility] #[id number], Partial fill upon patient request if the prescription is for a schedule II opi... Start Date: 03/23/22 Stop Date: 04/06/22 Status: Ordered tadalafil By Mouth, Daily, 0 [...] Dry Weight Start Date: 03/23/22 Status: Ordered Tylenol 325 mg oral tablet 975 mg, Tablet, By Mouth, 03/23/22 9:00:00 EDT Start Date: 03/23/22 Stop Date: 03/23/22 Status: Completed Problem List Condition Confirmation Course Effective Dates Status Health St atus Informant AF (atrial fibrillation) Confirmed Active CAD (coronary artery disease) Confirmed Active History of HIV infection Confirmed Active Obese class II Confirmed Active KINSEY (obstructive sleep apnea) Confirmed Active Polycythemia vera Confirmed Active Acquired polycythemia Confirmed Active Procedures Procedure Date Related Diagnosis Body Site Status Incision and drainage of abs cess with nonselective soft tissue debridement 03/22/22 Completed Results Orders for Microbiology Reports Name Date Blood Culture 03/20/22 Blood Culture #2 03/20/22 Microbiology Reports TEST:Blood Culture STATUS:Unauthenticated BODY SITE: SOURCE:Blood COLLECTED DATE/TIME:03/20/22 4:28 PM Blood Culture SPECIMEN DESCRIPTION : BLOOD R AC SPECIAL REQUESTS : NONE CULTURE : NO GROWTH 3 DAYS REPORT STATUS : PRELIMINARY REPORT TEST:Blood Culture, Second Order STATUS:Unauthenticated BODY SITE: SOURCE:Blood COLLECTED DATE/TIME:03/20/22 4:28 PM Blood Culture, Second Order SPECIMEN DESCRIPTION : BLOOD R HAND SPECIAL REQUESTS : NONE CULTURE : NO GROWTH 3 DAYS REPORT STATUS : PRELIMINARY REPORT Radiology Reports * Exam Date Time Procedure Performing Provider Status 03/20/22 11:01 PM Foot Min 3 Views Right Kaden Padilla; Auth (Verified) Notes: (Foot Min 3 Views Right) Reason For Exam: WOUND B/E 4TH AND 5TH DIGIT, LOOKING FOR OSTEO OR FLUID;Infection RESULT: Foot Min 3 Views Right Foot Min 3 Views Right, 3 views REASON: Infection; Wound B E 4th And 5th Digit, Looking For Osteo Or Fluid; Clinical Question(s): Osteomyelitis COMPARISON: Ankle radiographs 06/16/2005 FINDINGS: No fractures or bone lesions. Small Achilles enthesophyte and plantar calcaneal spur. Normal soft tissues. IMPRESSION: No radiographic evidence of fracture or osseous erosions. I have personally reviewed the images and I agree with this report. WSN: [id number] Ordering Physician: Deonte Fuentes Dictated By: Sohail Mcgowan DO Dictated Date/Time: 03/20/22 11:28 p Reviewed By: Andrew Booth MD Signed By: Andrew Booth MD Signed Date/Time: 03/20/22 11:33 pm Transcribed By: MARY JO Transcribed Date/Time: 03/20/22 11:14 pm Vital Signs Most recent to oldest [Reference Range]: 1 2 3 Height 188 cm (03/22/22 3:01 PM) 188 cm (03/22/22 12:04 PM) 188 cm (03/22/22 9:56 AM) Weight 127 kg (03/22/22 7:12 AM) 127 kg (03/20/22 11:51 PM) 127 kg (03/20/22 9:42 PM) Oxygen Saturation [94-100 %] 98 % (03/23/22 5:00 AM) 97 % (03/22/22 8:00 PM) 97 % (03/22/22 3:01 PM) Pulse Rate [55-90 bpm] 64 bpm (03/23/22 8:13 AM) 77 bpm (03/23/22 5:00 AM) 69 bpm (03/22/22 8:44 PM) Body Mass Index [18.5-24.99 kg/m2] 35.93 kg/m2 *>HHI* (03/22/22 7:12 AM) 35.93 kg/m2 *>HHI* (03/20/22 11:51 PM) 35.93 kg/m2 *>HHI* (03/20/22 9:42 PM) Blood Pressure [90-138/55-84 mm Hg] 142/77mm Hg *H* (03/23/22 8:13 AM) 134/95mm Hg (03/23/22 5:00 AM) 144/79mm Hg *H* (03/22/22 8:44 PM) Respiratory Rate [16-30 br/min] 20 br/min (03/23/22 11:26 AM) 20 br/min (03/23/22 11:22 AM) 20 br/min (03/23/22 8:13 AM) Temperature [96.8-100.4 DegF] 97.6 DegF (03/23/22 5:00 AM) 97.9 DegF (03/22/22 8:00 PM) 97.8 DegF (03/22/22 3:01 PM) Liters per Minute 6 L/min (03/22/22 8:15 AM) Mode of Delivery (Oxygen) Room air (03/23/22 5:00 AM) Room air (03/22/22 8:00 PM) Room air (03/22/22 3:01 PM) Blood pressure sites Arm, right (03/23/22 5:00 AM) Arm, right (03/22/22 8:00 PM) Arm, left (03/22/22 12:04 PM) Temperature Route Oral (03/23/22 5:00 AM) Oral (03/22/22 8:00 PM) Oral (03/22/22 3:01 PM) Dry Weight 127 kg (03/20/22 11:51 PM) 127 kg (03/20/22 9:42 PM) 127 kg (03/20/22 7:37 PM) Weight Obtained Via Patient/family state d (03/20/22 11:51 PM) Dry Weight Obtained Via Patient/family s tated (03/20/22 11:51 PM) Social History Social History Type Response Smoking Status Never smoker entered on: 02/20/16 Sex XR Foot - right GE 3 Views * BHSPowerscribe , CIS S: TRANSCRIBE Andrew Booth MD: VERIFY Sohail Mcgowan DO L: SIGN Event Display: Result: Authored Date: [id number] Foot Min 3 Views Right, 3 views REASON: Infection; Wound B E 4th And 5th Digit, Looking For Osteo Or Fluid; Clinical Question(s): Osteomyelitis COMPARISON: Ankle radiographs 06/16/2005 FINDINGS: No fractures or bone lesions. Small Achilles enthesophyte and plantar calcaneal spur. Normal soft tissues. IMPRESSION: No radiographic evidence of fracture or osseous erosions. I have personally reviewed the images and I agree with this report. WSN: [id number] Ordering Physician: Deonte Fuentes Dictated By: Sohail Mcgowan DO Dictated Date/Time: 03/20/22 11:28 p Reviewed By: Andrew Booth MD Signed By: Andrew Booth MD Signed Date/Time: 03/20/22 11:33 pm Transcribed By: MARY JO Transcribed Date/Time: 03/20/22 11:14 pm Patient Care team information Personnel Name: Hanna JASSO, Yohana Newton Address: Address: [address] [place] [address]
--- OUTSIDE RECORDS SUMMARY | 2023-10-27 08:55 | XMS_ITS | Continuity of Care Document ---
Author Organization [facility] Infectious Disease Address [address] [place] [address]- Care Team Providers Care Spot Welder Line Name Role Phone Hanna JASSO, Yohana Newton Primary Care Physician Encounter [facility] [place] Date(s): 01/23/21 - 02/22/21 [facility] Infect[facility] Disease [address] [place] [id number] Allergies, Adverse Reactions, Alerts Substance [...] Maintenance, 02/15/16 14:03:48, Route to Pharmacy Electronically, [id number], [facility] Start Date: 02/15/16 Stop [...] Maintenance, 02/15/16 14:06:46, Route to Pharmacy Electronically, [id number], [facility] 3 Start Date: 02/15/16 Stop Date: 06/14/16 Status: Ordered Odefsey oral tablet 1 tablet, By Mouth, Daily, # 30 tablet, 0 Refills, Maintenance, 09/04/19 17:05:00 EDT, Tablet Start Date: 09/04/19 Status: Ordered Odefsey oral tablet 1 tablet, By Mouth, Daily, with meals, # 30 tablet, 5 Refills, Maintenance, 10/05/20 12:30:00 EDT, Tablet, [facility] #[id number], 1 tablet By Mouth Daily,x30 days,Instr:with meals, [...]
--- OUTSIDE RECORDS SUMMARY | 2023-10-27 08:55 | XMS_ITS | Continuity of Care Document ---
Author Organization [facility] y Address [address] [place] [address]- Care Team Providers Care Paint Technician Name Role Phone Hanna JASSO, Yohana D Primary Care Physician [place] [facility] [place] 12/30/19 [facility] [address] [place] [address]- Attending Physician: Javed Thomas MD Admitting Physician: Javed Thomas MD Allergies, Adverse Reactions, Alerts Substance Reaction Severity Status NKA Active Medications aspirin 81 mg oral delayed release tablet 81 mg, By Mouth, Daily, with food, # 30 tablet, Refills 11, Tot. Refills 11, Maintenance, 02/15/16 14:03:48, Route to Pharmacy Electronically, [id number], [facility] 3 Start Date: 02/15/16 Stop Date: 02/09/17 [...] Maintenance, 02/15/16 14:06:46, Route to Pharmacy Electronically, [id number], [facility] 3 Start Date: 02/15/16 Stop Date: 06/14/16 Status: Ordered Odefsey oral tablet 1 tablet, By Mouth, Daily, # 30 tablet, 0 Refills, Maintenance, 09/04/19 17:05:00 EDT, Tablet Start Date: 09/04/19 Status: Ordered Odefsey oral tablet 1 tablet, By Mouth, Daily, with meals, # 30 tablet, 5 Refills, Maintenance, 10/17/19 13:52:00 EDT, Tablet, [facility] #[id number], 1 tablet By Mouth Daily,x30 days,Instr:with meals, [...]
--- OUTSIDE RECORDS SUMMARY | 2023-10-27 08:55 | XMS_ITS | Continuity of Care Document ---
Author Organization [facility] Infectious Disease Address [address] [place] [address]- Care Team Providers Care Transportation Manager Name Role Phone Hanna JASSO, Yohana Newton Primary Care Physician [phone] Encounter [facility] Date(s): 04/23/22 - 05/23/22 [facility] Infectious Disease [address] [place] [address] Attending Physician: AdmTamar chaparro Admitting Physician: Admtr, Ar8 Referring Physician: Admtr, Ar8 Allergies, Adverse Reactions, [...] Maintenance, 02/15/16 14:03:48, Route to Pharmacy Electronically, [id number], [facility] 3 Start Date: 02/15/16 Stop Date: 02/09/17 [...] Maintenance, 02/15/16 14:06:46, Route to Pharmacy Electronically, [id number], [facility] Start Date: 02/15/16 Stop Date: 06/14/16 Status: Ordered nystatin topical 046838 u/gm powder 1 application, Topically, 2 times a day, # 60 Gm, 0 Refills, Maintenance, 04/30/22 10:57:00 EST, Powder, [facility] #[id number], Partial fill upon patient request if the prescription is for a schedule II opioid drug., 1 application Topically 2 ti... Start Date: 04/30/22 Status: Ordered Odefsey oral tablet 1 tablet, By Mouth, Daily, # 30 tablet, 5 Refills, Maintenance, 04/08/22 15:30:00 EDT, Tablet, [facility] #[id number], Partial fill upon patient request if the [...] smoker entered on: 02/20/16 Sex Note * Event Display: Non Lab Results Authored Date: * Event Display: Non Lab Results Authored Date: Patient Care team information Care Team Personnel Name: Leticia Herrera RN Position: [facility] RN Member Role: Primary Care Nurse Name: Hanna JASSO, Yohana Newton Position: [facility] Physician (General Medicine) Member Role: PCP Address: Address: [address] [place] [address] Name: Alison Sandoval RN Position: S RN Member Role: Primary Care Nurse Name: Sena Crump Position: S RN Member Role: Primary Care Nurse Name: Maren Wan RN Position: [facility] PCO RN Member Role: Primary Care Nurse Name: Sruthi Hauser MD Position: [facility] Infectious Disease MD Member Role: Lifetime Consulting Physician Address: Address: [address] [place] [address] [place] [address]- Name: Yulisa Lobo RN Position: [facility] RN Member Role: Primary Care Nurse Care Team Related Persons Name: NONE, GIVEN Address: [place] [address] Name: ANGIE ZARATE Address: home [address] [place] [address] Name: JENNIFER ZARATE Address: [place] [address]
--- OUTSIDE RECORDS SUMMARY | 2023-10-27 08:55 | XMS_ITS | Continuity of Care Document ---
Author Organization [facility] Address [address] [place] [address]- Care Team Providers Care Laminator Hand Name Role Phone Hanna JASSO, Yohana Newton Primary Care Physician Encounter [facility] Date(s): 12/03/20 - 01/02/21 [facility] [address] [place] [address]- Attending Physician: Tamar Rodriguez Admitting Physician: AdmtrTamar Referring Physician: Admtr, ArDileep Allergies, Adverse Reactions, Alerts Substance Reaction Severity [...] Maintenance, 02/15/16 14:03:48, Route to Pharmacy Electronically, [id number], [facility] Start Date: 02/15/16 Stop [...] Maintenance, 02/15/16 14:06:46, Route to Pharmacy Electronically, [id number], [facility] 3 Start Date: 02/15/16 Stop Date: 06/14/16 Status: Ordered Odefsey oral tablet 1 tablet, By Mouth, Daily, # 30 tablet, 0 Refills, Maintenance, 09/04/19 17:05:00 EDT, Tablet Start Date: 09/04/19 Status: Ordered Odefsey oral tablet 1 tablet, By Mouth, Daily, with meals, # 30 tablet, 5 Refills, Maintenance, 10/05/20 12:30:00 EDT, Tablet, [facility] #[id number], 1 tablet By Mouth Daily,x30 days,Instr:with meals, [...]
--- OUTSIDE RECORDS SUMMARY | 2023-10-27 08:55 | XMS_ITS | Continuity of Care Document ---
Author Organization [facility] Address [address] [place] [address]- Care Team Providers Care Utility Clerk Name Role Phone Hanna JASSO, Yohana Newton Primary Care Physician [phone] Encounter [facility] Date(s): 02/10/23 - 03/12/23 [facility] [address] [place] [address] Allergies, Adverse Reactions, Alerts No Known Allergies Immunizations Given and Recorded Vaccine Date Status Refusal Reason tetanus/diphtheria/pertussis, acel(Tdap) 04/23/22 Given tetanus/diphtheria/pertussis, acel(Tdap) 02/19/11 Recorded [id number] 12y+ bivalent booster vax 04/23/22 Recorded influenza [...] Maintenance, 02/15/16 14:03:48, Route to Pharmacy Electronically, [id number], [facility] Start Date: 02/15/16 Stop Date: 02/09/17 [...] Maintenance, 02/15/16 14:06:46, Route to Pharmacy Electronically, [id number], [facility] Start Date: 02/15/16 Stop Date: 06/14/16 Status: Ordered Nystop [id number] u/gm powder See Instructions, APPLY TOPICALY 2 TIMES A DAY, # 60 Gm, 0 Refills, Maintenance, 09/18/22 8:11:00 EDT, [facility] #[id number], 25, APPLY TOPICALY 2 TIMES A DAY, [...] 5 Refills, Maintenance, 03/12/23 10:59:00 EDT, Tablet, [facility] #[id number], Partial fill upon patient request if the [...] Team Personnel Name: Leticia Herrera RN Position: [facility] RN Member Role: Primary Care Nurse Name: Yohana Ferreira MD Position: Reference Physician Member Role: PCP Address: Address: [address] [place] [address], [address] [place] [address]- Name: Alison Sandoval RN Position: [facility] RN Member Role: Primary Care Nurse Name: Maren Wan RN Position: [facility] [place] Nurse Member Role: Primary Care Nurse Name: Sruthi Hauser MD Position: [facility] Physician - Infectious Disease Member Role: Lifetime Consulting Physician Address: Address: [address] [place] [address] [place], [place] [address] Name: Yulisa Lobo RN Position: S RN Member Role: Primary Care Nurse Care Team Related Persons Name: NONE, GIVEN Address: [place] [address] Name: ANGIE ZARATE Address: [place] [address] Name: JENNIFER ZARATE Address: [place] [address]
--- OUTSIDE RECORDS SUMMARY | 2023-10-27 08:55 | XMS_ITS | Continuity of Care Document ---
Author Organization [facility] Address [address] [place] [address]- Care Team Providers Care Consulting Application Engineer Name Role Phone Hanna JASSO, Yohana Newton Primary Care Physician [phone] Encounter [facility] Date(s): 01/03/22 - 02/02/22 [facility] Infectious Disease [address] [place] [id number] Attending Physician: Tamar Rodriguez Admitting Physician: [...] Maintenance, 02/15/16 14:03:48, Route to Pharmacy Electronically, [id number], [facility] Start Date: 02/15/16 [...] Maintenance, 02/15/16 14:06:46, Route to Pharmacy Electronically, [id number], [facility] Start Date: 02/15/16 Stop Date: 06/14/16 Status: Ordered Odefsey oral tablet 1 tablet, By Mouth, Daily, # 30 tablet, 0 Refills, Maintenance, 09/04/19 17:05:00 EDT, Tablet Start Date: 09/04/19 Status: Ordered Odefsey oral tablet 1 tablet, By Mouth, Daily, with meals, # 30 tablet, 5 Refills, Maintenance, 10/14/21 13:56:00 EDT, Tablet, [facility] #[id number], 1 tablet By Mouth Daily,x30 days,Instr:with meals, [...] Personnel Name: Hanna JASSO, Yohana Newton Address: [address] [place] [address]
--- OUTSIDE RECORDS SUMMARY | 2023-10-27 08:55 | XMS_ITS | Continuity of Care Document ---
Author Organization [facility] Address [address] [place] [address]- Care Team Providers Care Hooker Laster Name Role Phone Hanna JASSO, Yohana Newton Primary Care Physician [phone] Encounter [facility] Date(s): 08/17/23 - 09/16/23 [facility] [address] [place] [address]- Allergies, Adverse Reactions, Alerts No Known Allergies Immunizations Given and Recorded Vaccine Date Status Refusal Reason tetanus/diphtheria/pertussis, acel(Tdap) 04/23/22 Given tetanus/diphtheria/pertussis, acel(Tdap) 02/19/11 Recorded [id number] 12y+ bivalent booster vax 04/23/22 Recorded influenza [...] Maintenance, 02/15/16 14:03:48, Route to Pharmacy Electronically, [id number], [facility] Start Date: 02/15/16 Stop [...] Maintenance, 02/15/16 14:06:46, Route to Pharmacy Electronically, [id number], [facility] Start Date: 02/15/16 Stop Date: 06/14/16 Status: Ordered Nystop [id number] u/gm powder See Instructions, APPLY TOPICALY 2 TIMES A DAY, # 60 Gm, 0 Refills, Maintenance, 09/18/22 8:11:00 EDT, [facility] #[id number], 25, APPLY TOPICALY 2 TIMES A DAY, [...] Daily, # 30 tablet, 5 Refills, Maintenance, 09/15/23 15:40:00 EDT, Tablet, [facility] #[id number], Partial fill upon patient request if the prescription is for a schedule II opioid drug., 1 tablet By Mouth Daily,x30 days, 188,... Start Date: 09/15/23 Stop Date: 03/13/24 Status: Ordered rosuvastatin 20 mg oral tablet [...] Care team information Care Team Personnel Name: Lteicia Herrera RN Position: [facility] RN Member Role: Primary Care Nurse Name: Hanna JASSO, Yohana Newton Position: Reference Physician Member Role: PCP Address: Address: [address] [place] [address], [address] [place], [place], [place] [address] Name: Alison Sandoval RN Position: [facility] RN Member Role: Primary Care Nurse Name: Maren Wan RN Position: [facility] AMB Nurse Member Role: Primary Care Nurse Name: Sruthi Hauser MD Position: [facility] Physician - Infectious Disease Member Role: Lifetime Consulting Physician Address: Address: [address] [place] [address] [place], [place] [address] Name: Yulisa Lobo RN Position: S RN Member Role: Primary Care Nurse Care Team Related Persons Name: NONE, GIVEN Address: [place] [address] Name: ANGIE ZARATE Address: home [address] [place] [address] Name: JENNIFER ZARATE Address: [place] [address]
--- OUTSIDE RECORDS SUMMARY | 2023-10-27 08:55 | XMS_ITS | Continuity of Care Document ---
Author Organization [facility] Address [address] [place] [address]- Care Team Providers Care Milk Route Deliverer Name Role Phone Not on Staff, PCP Primary Care Physician Unavail able Encounter [facility] Date(s): 09/07/19 - 09/17/19 [facility] Care [address] [place] [address]- [facility] Attending Physician: Tamar Rodriguez Admitting Physician: Tamar Rodriguez Referring Physician: Tamar Rodriguez Referring Physician: Genia Briseno [place] Allergies, Adverse Reactions, Alerts Substance Reaction Severity Status NKA Active Medications aspirin 81 mg oral delayed release tablet 81 mg, By Mouth, Daily, with food, # 30 tablet, Refills 11, Tot. Refills 11, Maintenance, 02/15/16 14:03:48, Route to Pharmacy Electronically, [id number], [facility] Start Date: 02/15/16 Stop [...] Maintenance, 02/15/16 14:06:46, Route to Pharmacy Electronically, [id number], [facility] Start Date: 02/15/16 Stop [...]
--- OUTSIDE RECORDS SUMMARY | 2023-10-27 08:55 | XMS_ITS | Continuity of Care Document ---
Author Organization [facility] Address [address] [place] [address]- Care Team Providers Care Cloth Grader Supervisor Name Role Phone Hanna JASSO, Yohana Newton Primary Care Physician Encounter [facility] Date(s): 02/17/20 - 03/18/20 [facility] [address] [place] [address]- [facility] Attending Physician: Tamar Rodriguez Admitting Physician: Tamar Rodriguez Referring Physician: Tamar Rodriguez Allergies, Adverse Reactions, Alerts Substance Reaction Severity Status NKA Active Medications aspirin 81 mg oral delayed release tablet 81 mg, By Mouth, Daily, with food, # 30 tablet, Refills 11, Tot. Refills 11, Maintenance, 02/15/16 14:03:48, Route to Pharmacy Electronically, [id number], [facility] Start Date: 02/15/16 Stop [...] Maintenance, 02/15/16 14:06:46, Route to Pharmacy Electronically, [id number], [facility] Start Date: 02/15/16 Stop Date: 06/14/16 Status: Ordered Odefsey oral tablet 1 tablet, By Mouth, Daily, # 30 tablet, 0 Refills, Maintenance, 09/04/19 17:05:00 EDT, Tablet Start Date: 09/04/19 Status: Ordered Odefsey oral tablet 1 tablet, By Mouth, Daily, with meals, # 30 tablet, 5 Refills, Maintenance, 10/17/19 13:52:00 EDT, Tablet, [facility] #[id number], 1 tablet By Mouth Daily,x30 days,Instr:with meals, [...]
--- OUTSIDE RECORDS SUMMARY | 2023-10-27 08:55 | XMS_ITS | Continuity of Care Document ---
Author Organization [facility] Address [address] [place] [address]- Care Team Providers Care Uniform Force Captain Name Role Phone Hanna JASSO, Yohana Newton Primary Care Physician [phone] Encounter [facility] Date(s): 12/22/22 - 01/21/23 [facility] Disease [address] [place] [address] Allergies, Adverse Reactions, Alerts No Known Allergies Immunizations Given and Recorded Vaccine Date Status Refusal Reason tetanus/diphtheria/pertussis, acel(Tdap) 04/23/22 Given tetanus/diphtheria/pertussis, acel(Tdap) 02/19/11 Recorded [id number] 12y+ bivalent booster vax 04/23/22 Recorded influenza [...] Start Date: 04/10/22 Status: Ordered AQUACEL AG AQUACFluorofinder AG, See Instructions, # 1 pack/packet, Refills [...] Maintenance, 02/15/16 14:03:48, Route to Pharmacy Electronically, [id number], [facility] Start Date: 02/15/16 [...] Maintenance, 02/15/16 14:06:46, Route to Pharmacy Electronically, [id number], [facility] 3 Start Date: 02/15/16 Stop Date: 06/14/16 Status: Ordered Nystop [id number] u/gm powder See Instructions, APPLY TOPICALY 2 TIMES A DAY, # 60 Gm, 0 Refills, Maintenance, 09/18/22 8:11:00 EDT, [facility] #[id number], 25, APPLY TOPICALY 2 TIMES A DAY, [...] 5 Refills, Maintenance, 09/04/22 16:04:00 EDT, Tablet, [facility] #[id number], Partial fill upon patient request if the [...] Team Personnel Name: Leticia Herrera RN Position: [facility] RN Member Role: Primary Care Nurse Name: Yohana Ferreira MD Position: [facility] Physician - Primary Care Member Role: PCP Address: Address: [address] [place] [address] [place], [place] [address] Name: Alison Sandoval RN Position: [facility] RN Member Role: Primary Care Nurse Name: Maren Wan RN Position: [facility] [place] Nurse Member Role: Primary Care Nurse Name: Sruthi Hauser MD Position: [facility] Physician - Infectious Disease Member Role: Lifetime Consulting Physician Address: Address: [address] [place] [address] [place] [address]- [place] Name: Yulisa Lobo RN Position: S RN Member Role: Primary Care Nurse Care Team Related Persons Name: NONE, GIVEN Address: [place] [address] Name: ANGIE ZARATE Address: home [address] [place] [address] Name: JENNIFER ZARATE Address: [place] [address]
--- OUTSIDE RECORDS SUMMARY | 2023-10-27 08:55 | XMS_ITS | Continuity of Care Document ---
Author Organization [facility] Address [address] [place] [address]- Care Team Providers Care Bioprocess Engineer Name Role Phone Hanna JASSO, Yohana Newton Primary Care Physician Encounter [facility] Date(s): 09/01/19 - 09/11/19 [facility] [address] [place] [address]- [facility] Attending Physician: Tamar Rodriguez Admitting Physician: AdmtrTamar Referring Physician: Admtr, ArDileep Allergies, Adverse Reactions, Alerts Substance Reaction Severity Status NKA Active Medications aspirin 81 mg oral delayed release tablet 81 mg, By Mouth, Daily, with food, # 30 tablet, Refills 11, Tot. Refills 11, Maintenance, 02/15/16 14:03:48, Route to Pharmacy Electronically, [id number], [facility] Start Date: 02/15/16 Stop [...] Maintenance, 02/15/16 14:06:46, Route to Pharmacy Electronically, [id number], [facility] Start Date: 02/15/16 Stop Date: 06/14/16 Status: Ordered Odefsey oral tablet 1 tablet, By Mouth, Daily, # 30 tablet, 0 Refills, Maintenance, 09/04/19 17:05:00 EDT, Tablet Start Date: 09/04/19 Status: Ordered rosuvastatin 20 mg oral tablet 1 tablet = 20 mg, By Mouth, Daily, # 30 tablet, 0 Refills, Maintenance, 12/31/17 11:55:41 EDT, Tablet Start Date: 12/31/17 Status: Ordered Social History Social History Type Response Smoking Status Never smoker entered on: 02/20/16 Sex
--- OUTSIDE RECORDS SUMMARY | 2023-10-27 08:55 | XMS_ITS | Continuity of Care Document ---
Author Organization [facility] Address [address] [place] [address]- Care Team Providers Care Site Lead Name Role Phone Hanna JASSO, Yohana Newton Primary Care Physician Encounter [facility] Date(s): 12/16/19 - 01/15/20 [facility] [address] [place] [address]- [facility] Attending Physician: Tamar Rodriguez Admitting Physician: Tamar Rodriguez Referring Physician: Tamar Rodriguez Allergies, Adverse Reactions, Alerts Substance Reaction Severity Status NKA Active Medications aspirin 81 mg oral delayed release tablet 81 mg, By Mouth, Daily, with food, # 30 tablet, Refills 11, Tot. Refills 11, Maintenance, 02/15/16 14:03:48, Route to Pharmacy Electronically, [id number], [facility] Start Date: 02/15/16 Stop [...] Maintenance, 02/15/16 14:06:46, Route to Pharmacy Electronically, [id number], [facility] Start Date: 02/15/16 Stop Date: 06/14/16 Status: Ordered Odefsey oral tablet 1 tablet, By Mouth, Daily, # 30 tablet, 0 Refills, Maintenance, 09/04/19 17:05:00 EDT, Tablet Start Date: 09/04/19 Status: Ordered Odefsey oral tablet 1 tablet, By Mouth, Daily, with meals, # 30 tablet, 5 Refills, Maintenance, 10/17/19 13:52:00 EDT, Tablet, [facility] #[id number], 1 tablet By Mouth Daily,x30 days,Instr:with meals, [...]
--- OUTSIDE RECORDS SUMMARY | 2023-10-27 08:55 | XMS_ITS | Continuity of Care Document ---
Author Organization [facility] Address [address] [place] [address]- Care Team Providers Care First Dyer Name Role Phone Hanna JASSO, Yohana Lamar Primary Care Physician [phone] Encounter [facility] Date(s): 12/24/22 - 01/23/23 [facility] Infectious Disease [address] [place] [id number] Attending Physician: AdmTamar chaparro Admitting Physician: AdmtrTamar Referring Physician: Admtr, Ar8 Allergies, Adverse Reactions, Alerts No Known Allergies Immunizations Given and Recorded Vaccine Date Status Refusal Reason tetanus/diphtheria/pertussis, acel(Tdap) 04/23/22 Given tetanus/diphtheria/pertussis, acel(Tdap) 02/19/11 Recorded [id number] 12y+ bivalent booster vax 04/23/22 Recorded influenza [...] Maintenance, 02/15/16 14:03:48, Route to Pharmacy Electronically, [id number], [facility] Start Date: 02/15/16 [...] Maintenance, 02/15/16 14:06:46, Route to Pharmacy Electronically, [id number], [facility] Start Date: 02/15/16 Stop Date: 06/14/16 Status: Ordered Nystop [id number] u/gm powder See Instructions, APPLY TOPICALY 2 TIMES A DAY, # 60 Gm, 0 Refills, Maintenance, 09/18/22 8:11:00 EDT, [facility] #[id number], 25, APPLY TOPICALY 2 TIMES A DAY, [...] 5 Refills, Maintenance, 09/04/22 16:04:00 EDT, Tablet, [facility] #[id number], Partial fill upon patient request if the [...] Primary Care Member Role: PCP Address: Address: [address] [place] [address] Name: Alison Sandoval RN Position: S RN Member Role: Primary Care Nurse Name: Maren Wan RN Position: [facility] AMB Nurse Member Role: Primary Care Nurse Name: Sruthi Hauser MD Position: [facility] Physician - Infectious Disease Member Role: Lifetime Consulting Physician Address: Address: [address] [place] [address] Name: Yulisa Lobo RN Position: [facility] RN Member Role: Primary Care Nurse Care Team Related Persons Name: NONE, GIVEN Address: [place] [address] Name: ANGIE ZARATE Address: [place] [address] Name: JENNIFER ZARATE Address: [place] [address]
--- OUTSIDE RECORDS SUMMARY | 2023-10-27 08:55 | XMS_ITS | Continuity of Care Document ---
Author Organization [facility] Address [address] [place] [address]- Care Team Providers Care Executive Pastry Chef Name Role Phone Hanna JASSO, Yohana Lamar Primary Care Physician [phone] [place] [facility] Date(s): 12/18/21 - 12/19/[address] [address]- Discharge Disposition: A-D/C Walkout Attending Physician: Not on Staff, Attending MD [...] Maintenance, 02/15/16 14:03:48, Route to Pharmacy Electronically, [id number], [facility] Start Date: 02/15/16 Stop Date: [...] Maintenance, 02/15/16 14:06:46, Route to Pharmacy Electronically, [id number], [facility] Start Date: 02/15/16 Stop Date: 06/14/16 Status: Ordered Odefsey oral tablet 1 tablet, By Mouth, Daily, # 30 tablet, 0 Refills, Maintenance, 09/04/19 17:05:00 EDT, Tablet Start Date: 09/04/19 Status: Ordered Odefsey oral tablet 1 tablet, By Mouth, Daily, with meals, # 30 tablet, 5 Refills, Maintenance, 10/14/21 13:56:00 EDT, Tablet, [facility] #[id number], 1 tablet By Mouth Daily,x30 days,Instr:with meals, [...] (obstructive sleep apnea)(Confirmed) Active Acquired polycythemia(Confirmed) Active Vital Signs Most recent to oldest [Reference Range]: 1 2 3 Height 188 cm (12/18/21 7:09 PM) 188 cm (12/18/21 6:44 PM) Weight 127 kg (12/18/21 7:09 PM) 127 kg (12/18/21 6:44 PM) Oxygen Saturation [94-100 %] 94 % (12/18/21 8:45 PM) 99 % (12/18/21 6:44 PM) 98 % (12/18/21 6:05 PM) Pulse Rate [55-90 bpm] 70 bpm (12/18/21 8:45 PM) 71 bpm (12/18/21 6:44 PM) 91 bpm *H* (12/18/21 6:05 PM) Body Mass Index [18.5-24.99] 35.93 *>HHI* (12/18/21 6:44 PM) Blood Pressure [90-138/55-84 mm Hg] 132/93mm Hg (12/18/21 8:45 PM) 139/83mm Hg *H* (12/18/21 6:44 PM) Respiratory Rate [16-30 br/min] 18 br/min (12/18/21 6:44 PM) Temperature [96.8-100.4 DegF] 97.9 DegF (12/18/21 8:45 PM) 98.4 DegF (12/18/21 6:44 PM) Mode of Delivery (Oxygen) Room air (12/18/21 6:44 PM) Blood pressure sites Arm, left (12/18/21 8:45 PM) Arm, right (12/18/21 6:44 PM) Temperature Route Oral (12/18/21 8:45 PM) Oral (12/18/21 6:44 PM) Dry Weight 127 kg (12/18/21 7:09 PM) 127 kg (12/18/21 6:44 PM) Weight Obtained Via Patient/family state d (12/18/21 6:44 PM) Dry Weight Obtained Via Patient/family s tated (12/18/21 6:44 PM) Social History Social History Type Response Smoking Status Never smoker entered on: 02/20/16 Sex
--- OUTSIDE RECORDS SUMMARY | 2023-10-27 08:55 | XMS_ITS | Continuity of Care Document ---
Author Organization [facility] Address [address] [place] [address]- Care Team Providers Care Prize Jacker Name Role Phone Hanna JASSO, Yohana Newton Primary Care Physician [place] [facility] [place] 12/11/21 - 01/10/22 [facility] [address] [place] [id number] Allergies, Adverse Reactions, Alerts No Known [...] Maintenance, 02/15/16 14:03:48, Route to Pharmacy Electronically, [id number], [facility] Start Date: 02/15/16 Stop [...] Maintenance, 02/15/16 14:06:46, Route to Pharmacy Electronically, [id number], [facility] Start Date: 02/15/16 Stop Date: 06/14/16 Status: Ordered Odefsey oral tablet 1 tablet, By Mouth, Daily, # 30 tablet, 0 Refills, Maintenance, 09/04/19 17:05:00 EDT, Tablet Start Date: 09/04/19 Status: Ordered Odefsey oral tablet 1 tablet, By Mouth, Daily, with meals, # 30 tablet, 5 Refills, Maintenance, 10/14/21 13:56:00 EDT, Tablet, [facility] #00090, 1 tablet By Mouth Daily,x30 days,Instr:with meals, [...]
--- OUTSIDE RECORDS SUMMARY | 2023-10-27 08:55 | XMS_ITS | Continuity of Care Document ---
Author Organization [facility] Address [address] [place] [address]- Care Team Providers Care Load Out Supervisor Name Role Phone Hanna JASSO, Yohana Newton Primary Care Physician [phone] Encounter [facility] Date(s): 04/17/22 - 05/17/22 [facility] [address] [place] [address]- Allergies, Adverse Reactions, Alerts No Known Allergies [...] Maintenance, 02/15/16 14:03:48, Route to Pharmacy Electronically, [id number], [facility] Start Date: 02/15/16 Stop Date: [...] Maintenance, 02/15/16 14:06:46, Route to Pharmacy Electronically, [id number], [facility] Start Date: 02/15/16 Stop Date: 06/14/16 Status: Ordered nystatin topical 167442 u/gm powder 1 application, Topically, 2 times a day, # 60 Gm, 0 Refills, Maintenance, 04/30/22 10:57:00 EST, Powder, [facility][id number], Partial fill upon patient request if the prescription is for a schedule II opioid drug., 1 application Topically 2 ti... Start Date: 04/30/22 Status: Ordered Odefsey oral tablet 1 tablet, By Mouth, Daily, # 30 tablet, 5 Refills, Maintenance, 04/08/22 15:30:00 EDT, Tablet, [facility]62556, Partial fill upon patient request if the [...] Team Personnel Name: Leticia Herrera RN Position: [facility] RN Member Role: Primary Care Nurse Name: Yohana Ferreira MD Position: [facility] Physician (General Medicine) Member Role: PCP Address: Address: [address] [place] [address] Name: Alison Sandoval RN Position: [facility] RN Member Role: Primary Care Nurse Name: Sena Crump Position: [facility] RN Member Role: Primary Care Nurse Name: Maren Wan RN Position: [facility] PCO RN Member Role: Primary Care Nurse Name: Sruthi Hauser MD Position: [facility] Infectious Disease MD Member Role: Lifetime Consulting Physician Address: Address: [address] [place] [address] Name: Yulisa Lobo RN Position: [facility] RN Member Role: Primary Care Nurse Care Team Related Persons Name: NONE, GIVEN Address: [place] [address] Name: ANGIE ZARATE Address: home [address] [place] [address] Name: JENNIFER ZARATE Address: [place] [address]
--- OUTSIDE RECORDS SUMMARY | 2023-10-27 08:55 | XMS_ITS | Continuity of Care Document ---
Author Organization [facility] Address [address] [place] [address]- Care Team Providers Care Warehouse Driver Name Role Phone Hanna JASSO, Yohana D Primary Care Physician [phone] Encounter [facility] Date(s): 12/22/22 - 01/21/23 [facility]/[place] [address]- [place] Allergies, Adverse Reactions, Alerts No Known Allergies Immunizations Given and Recorded Vaccine Date Status Refusal Reason tetanus/diphtheria/pertussis, acel(Tdap) 04/23/22 Given tetanus/diphtheria/pertussis, acel(Tdap) 02/19/11 Recorded [id number] 12y+ bivalent booster vax 04/23/22 Recorded influenza [...] Start Date: 04/10/22 Status: Ordered [employer], See Instructions, # 1 pack/packet, Refills [...] Maintenance, 02/15/16 14:03:48, Route to Pharmacy Electronically, [id number], [facility] Start Date: 02/15/16 [...] Maintenance, 02/15/16 14:06:46, Route to Pharmacy Electronically, [id number], [facility] 3 Start Date: 02/15/16 Stop Date: 06/14/16 Status: Ordered Nystop [id number] u/gm powder See Instructions, APPLY TOPICALY 2 TIMES A DAY, # 60 Gm, 0 Refills, Maintenance, 09/18/22 8:11:00 EDT, [facility] #[id number], 25, APPLY TOPICALY 2 TIMES A DAY, [...] 5 Refills, Maintenance, 09/04/22 16:04:00 EDT, Tablet, [facility] #[id number], Partial fill upon patient request if the [...] Team Personnel Name: Leticia Herrera RN Position: [facility] RN Member Role: Primary Care Nurse Name: Yohana Ferreira MD Position: [facility] Physician - Primary Care Member Role: PCP Address: Address: [address] [place] [address] [place], [place] [address] Name: Alison Sandoval RN Position: [facility] RN Member Role: Primary Care Nurse Name: Maren Wan RN Position: [facility] JAMESON Nurse Member Role: Primary Care Nurse Name: Sruthi Hauser MD Position: [facility] Physician - Infectious Disease Member Role: Lifetime Consulting Physician Address: Address: [address] [place] [address] [place] [address]- [place] Name: Yulisa Lobo RN Position: S RN Member Role: Primary Care Nurse Care Team Related Persons Name: NONE, GIVEN Address: [place] [address] Name: ANGIE ZARATE Address: home [address] [place] [address] Name: JENNIFER ZARATE Address: [place] [address]
--- OUTSIDE RECORDS SUMMARY | 2023-10-27 08:55 | XMS_ITS | Continuity of Care Document ---
Author Organization [facility] Address [address] [place] [address]- Care Team Providers Care Cook Barbecue Name Role Phone Hanna JASSO, Yohana Lamar Primary Care Physician [phone] Encounter [facility] Date(s): 12/12/19 - 01/15/20 [facility] [address] [place] [address]- [facility] Attending Physician: Kylah JASSO, Michele Demarco Referring Physician: Benigno Benson MD Allergies, Adverse Reactions, Alerts Substance Reaction Severity Status NKA Active Medications aspirin 81 mg oral delayed release tablet 81 mg, By Mouth, Daily, with food, # 30 tablet, Refills 11, Tot. Refills 11, Maintenance, 02/15/16 14:03:48, Route to Pharmacy Electronically, [id number], [facility] Start Date: 02/15/16 [...] Maintenance, 02/15/16 14:06:46, Route to Pharmacy Electronically, [id number], [facility] Start Date: 02/15/16 Stop Date: 06/14/16 Status: Ordered Odefsey oral tablet 1 tablet, By Mouth, Daily, # 30 tablet, 0 Refills, Maintenance, 09/04/19 17:05:00 EDT, Tablet Start Date: 09/04/19 Status: Ordered Odefsey oral tablet 1 tablet, By Mouth, Daily, with meals, # 30 tablet, 5 Refills, Maintenance, 10/17/19 13:52:00 EDT, Tablet, [email or web address] #[id number], 1 tablet By Mouth Daily,x30 days,Instr:with meals, [...]
--- OUTSIDE RECORDS SUMMARY | 2023-10-27 08:55 | XMS_ITS | Continuity of Care Document ---
Author Organization [facility] Address [address] [place] [address]- Care Team Providers Care Senior Architect Name Role Phone Hanna JASSO, Yohana Newton Primary Care Physician Encounter [facility] Date(s): 12/23/22 - 01/22/23 [facility] [address] [place] [id number] Allergies, Adverse Reactions, Alerts No Known Allergies Immunizations Given and Recorded Vaccine Date Status Refusal Reason tetanus/diphtheria/pertussis, acel(Tdap) 04/23/22 Given tetanus/diphtheria/pertussis, acel(Tdap) 02/19/11 Recorded [id number] 12y+ bivalent booster vax 04/23/22 Recorded influenza [...] Maintenance, 02/15/16 14:03:48, Route to Pharmacy Electronically, [id number], [facility] 3 Start Date: 02/15/16 Stop Date: [...] Maintenance, 02/15/16 14:06:46, Route to Pharmacy Electronically, [id number], [facility] Start Date: 02/15/16 Stop Date: 06/14/16 Status: Ordered Nystop [id number] u/gm powder See Instructions, APPLY TOPICALY 2 TIMES A DAY, # 60 Gm, 0 Refills, Maintenance, 09/18/22 8:11:00 EDT, [facility] #[id number], 25, APPLY TOPICALY 2 TIMES A DAY, [...] 5 Refills, Maintenance, 09/04/22 16:04:00 EDT, Tablet, [facility] #[id number], Partial fill upon patient request if the [...] Team Personnel Name: Leticia Herrera RN Position: [facility] RN Member Role: Primary Care Nurse Name: Yohana Ferreira MD Position: [facility] Physician - Primary Care Member Role: PCP Address: Address: [address] [place] [id number] Name: Alison Sandoval RN Position: [facility] RN Member Role: Primary Care Nurse Name: Maren Wan RN Position: [facility] AMB Nurse Member Role: Primary Care Nurse Name: Sruthi Hauser MD Position: [facility] Physician - Infectious Disease Member Role: Lifetime Consulting Physician Address: Address: [address] [place] [address] [place], [place] [address] Name: Yulisa Lobo RN Position: S RN Member Role: Primary Care Nurse Care Team Related Persons Name: NONE, GIVEN Address: [place] [address] Name: ANGIE ZARATE Address: [place] [address] Name: JENNIFER ZARATE Address: [place] [address]
--- OUTSIDE RECORDS SUMMARY | 2023-10-27 08:55 | XMS_ITS | Continuity of Care Document ---
Author Organization [facility] Address [address] [place] [address]- Care Team Providers Care Personnel Psychologist Name Role Phone Hanna JASSO, Yohana Newton Primary Care Physician [phone] Encounter [facility] Date(s): 08/21/23 - 09/20/23 [facility] [address] [place] [address]- Allergies, Adverse Reactions, Alerts No Known Allergies Immunizations Given and Recorded Vaccine Date Status Refusal Reason tetanus/diphtheria/pertussis, acel(Tdap) 04/23/22 Given tetanus/diphtheria/pertussis, acel(Tdap) 02/19/11 Recorded [id number] 12y+ bivalent booster vax 04/23/22 Recorded influenza [...] Maintenance, 02/15/16 14:03:48, Route to Pharmacy Electronically, [id number], [facility] Start Date: 02/15/16 Stop [...] Maintenance, 02/15/16 14:06:46, Route to Pharmacy Electronically, [id number], [facility] Start Date: 02/15/16 Stop Date: 06/14/16 Status: Ordered Nystop [id number] u/gm powder See Instructions, APPLY TOPICALY 2 TIMES A DAY, # 60 Gm, 0 Refills, Maintenance, 09/18/22 8:11:00 EDT, [facility] #[id number], 25, APPLY TOPICALY 2 TIMES A DAY, [...] 5 Refills, Maintenance, 09/15/23 15:40:00 EDT, Tablet, [facility] #[id number], Partial fill upon patient request if the [...] Reference Physician Member Role: PCP Address: Address: [address] [place] [address], [address] [place], [place], [place] [address] Name: Alison Sandoval RN Position: [facility] RN Member Role: Primary Care Nurse Name: Maren Wan RN Position: [facility] AMB Nurse Member Role: Primary Care Nurse Name: Sruthi Hauser MD Position: [facility] Physician - Infectious Disease Member Role: Lifetime Consulting Physician Address: Address: [address] [place] [address] [place] [address] Name: Yulisa Lobo RN Position: S RN Member Role: Primary Care Nurse Care Team Related Persons Name: NONE, GIVEN Address: [place] [address] Name: ANGIE ZARATE Address: home [address] [place] [address] Name: JENNIFER ZARATE Address: [place] [address]
--- OUTSIDE RECORDS SUMMARY | 2023-10-27 08:56 | XMS_ITS | Continuity of Care Document ---
Author Organization [facility] Address [address] [place] [address]- Care Team Providers Care Supply Crib Attendant Name Role Phone Hanna JASSO, Yohana Newton Primary Care Physician [phone] Encounter [facility] Date(s): 09/13/19 - 09/23/19 [facility] [address] [place] [address]- [facility] Attending Physician: AdmtrTamar Admitting Physician: Admtr, Ar8 Referring Physician: Admtr, Ar8 Allergies, Adverse Reactions, Alerts Substance Reaction Severity Status NKA Active Medications aspirin 81 mg oral delayed release tablet 81 mg, By Mouth, Daily, with food, # 30 tablet, Refills 11, Tot. Refills 11, Maintenance, 02/15/16 14:03:48, Route to Pharmacy Electronically, [id number], [facility] Start Date: 02/15/16 Stop [...] Maintenance, 02/15/16 14:06:46, Route to Pharmacy Electronically, [id number], [facility] Start Date: 02/15/16 Stop [...]
--- OUTSIDE RECORDS SUMMARY | 2023-10-27 08:56 | XMS_ITS | Patient Health Record ---
Author Organization [facility]oney Address [address] [place] [address] Care Team Providers Care Pediatric Dental Assistant Name Role Phone Hanna JASSO, [facility] Primary Care Provider Robert Cummings Unavailable [phone] ALLERGIES No Known Allergies REASON FOR REFERRAL No Information MEDICATIONS Medication SIG (Take, Route, Frequency, Duration) Notes Start Date End Date Status Rosuvastatin Calcium 20 MG 1 tablet Orally Once a day for 30 day(s) Active Odefsey 200-25-25 MG as directed Orally Active Keflex 500 MG 1 capsule Orally patricia ry 6 hrs for 10 day(s) 03/18/2022 Not-Taking Work Note . . . patient is being admitted for life threatening infection and is disabled from work 03/20/2022 Active Night Splint AFO - L1930 as directed 03/12/2020 Not-Taking Ciclopirox Olamine 0.77 % 1 application to affected area Externally to feet Twice a day for 30 days Not-Taking Miconazole Antifungal 2 % 1 application Externally Twice a day for 30 days 06/06/2020 Not-Taking Physical Therapy . . . 2-3x/week for 3- 4 weeks 04/26/2020 Not-Taking Aspirin 81 MG 1 tablet Orally Once a day for 30 day(s) Active Amoxicillin-Pot Clavulanate 875 875-125 MG one tab Orally every 12 hrs for 10 day(s) 10 days 03/18/2022 Not-Taking Erythromycin 500 MG as directed Orally Twice a day for 14 days 06/06/2020 Not-Taking Metoprolol Succinate ER 50 MG 1 tablet Orally Once a day for 30 day(s) Active IMMUNIZATIONS Vaccine Route Administration Date Status Comme nts COVID-19 Pfizer BioNTech Vaccine Unknown 07/09/2020 Administered Second Dose: SOCIAL HISTORY Tobacco Use: Social History Observation Description Date Details (start date - stop date) Never Smoker NA - NA Sex Assigned At : Social History Observation Description Sex Assigned At Unknown Tobacco Use/Smoking Question Answer Notes Are you a: nonsmoker Additional Findings: Tobacco Non-User Aggressive non-smoker Alcohol Screen Question Answer Notes Did you have a drink contain ing alcohol in the past year? Yes How often did you have a dri nk containing alcohol in the past year? 2 to 3 times a week (3 points) How many drinks did you have on a typical day when you were drinking in the past year? 1 or 2 drinks (0 point) How often did you have 6 or more drinks on one occasion in the past year? Never (0 point) Points 3 Interpretation Negative Tobacco use other than smoking: Question Answer Notes Are you an other tobacco user? 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) Active confirmed Problem Other hammer toe(s) (acquired), right foot (M20.41) Active confirmed Acquired hammer toe of right foot (835195058510 9105) Problem Other hammer toe(s) (acquired), left foot (M20.42) Active confirmed Acquired hammer toe of left foot (082374385121 9103) PLAN OF TREATMENT Pending Test Test Name Order Date X ray : Foot, right 3V 02/20/2020 54147,[id number] TENDON SHEATH/LIGAMENT 1 66703 - Punch Biopsy of Skin Lesion 05/09 Insurance Providers Payer Name Payer Address Payer Phone Subscriber Number Group Number Insured Name Patient Relationship to Insured Coverage Start Date Coverage End Date Cigna [address] NEHA Wood [phone] [id number] Tank Mark Self - patient is the insured MEDICAL (GENERAL) HISTORY Medical History History ICD Code Heart disease Chicken pox Surgical History Surgery Date(Month/Year) 2015
--- OUTSIDE RECORDS SUMMARY | 2023-10-27 08:56 | XMS_ITS | Continuity of Care Document ---
Author Organization [facility] Address [address] [place] [address]- Care Team Providers Care Pond Sawyer Name Role Phone Yohana Ferreira MD Primary Care Physician Encounter [facility] Date(s): 04/09/22 - 04/16/22 [facility] [address] [place] [address]- Attending Physician: Yohana Ferreira MD Admitting Physician: Yohana Ferreira MD Allergies, Adverse Reactions, Alerts No Known [...] Maintenance, 02/15/16 14:03:48, Route to Pharmacy Electronically, [id number], [facility] 3 Start Date: 02/15/16 Stop [...] Maintenance, 02/15/16 14:06:46, Route to Pharmacy Electronically, [id number], [facility] 3 Start Date: 02/15/16 Stop Date: 06/14/16 Status: Ordered Odefsey oral tablet 1 tablet, By Mouth, Daily, # 30 tablet, 5 Refills, Maintenance, 04/08/22 15:30:00 EDT, Tablet, [facility] #[id number], Partial fill upon patient request if the [...] oldest [Reference Range]: 1 Height 188 cm (04/09/22 9:06 AM) Weight 127 kg (04/09/22 9:06 AM) Pulse Rate [55-90 bpm] 70 bpm (04/09/22 9:06 AM) Body Mass Index [18.5-24.99 kg/m2] 35.93 kg/m2 *>HHI* (04/09/22 9:06 AM) Blood Pressure [90-138/55-84 mm Hg] 124/ 80mm Hg (04/09/22 9:06 AM) Blood pressure sites Arm, right (04/09/22 9:06 AM) Weight Obtained Via Patient/family state d (04/09/22 9:06 AM) Social History Social History Type Response Smoking Status Never smoker entered on: 02/20/16 Sex Note * Norma Green: PERFORM, SIGN, VERIFY Event Display: Patient Education/Instruction Authored Date: [id number] [facility] [address] Clinical Summary Name ILEANA ZARATE Age 47 Years 1975 PCP Hanna JASSO, Yohana Newton PCP Visit Date 04/09/2022 09:00:00 Additional Instructions: Scheduled Appointments?? Future Appointments ?*[facility]??ID ?[id number]??[place],??[place],??[address] ?Phone:??--?Fax:??-- ?Appt. Date:??04/23/2022?11:40 AM ?Scheduled Provider:??Sruthi Hauser MD ?*[facility] ?Phone:??--?Fax:??-- ?Appt. Date:??04/30/2022?10:20 AM ?Scheduled Provider:??[facility] Follow-Up Instructions ?? Diagnosis Medications: Please continue your medications until treatment is completed or stopped by your provider. Discuss any questions related to medications with your provider. Medications to Continue with No Changes These [...] for 30 Days. Refills: 3. Next Dose: [place]-3 Polyunsaturated Fatty Acids (Fish Oil 1000 mg oral capsule) 1 capsule Oral twice a day. Refills: 0. Next Dose: Rosuvastatin (rosuvastatin 20 mg oral tablet) 1 tab(s) Oral Daily at Bedtime. Next Dose: tadalafil Oral Daily. Next Dose: Allergy Info:?? NKA Medications Given This Visit Future Orders ?No future orders Vital Signs Height 188 cm Weight 127 kg BMI 35.93 kg/m2 Blood Pressure 124 mm Hg/80 mm Hg Temperature Pulse Rate 70 bpm Respiratory Rate 02 Sat Mode of Delivery / You can now view a summary of your hospital visit from the comfort of your home through a free online portal called [employer]. [employer] is a website that allows you to securely view your medical information including discharge summary, medications and follow-up visits. ??You can alsosend a secure electronic message to your doctor???s office to request appointments, renew medications or just ask a question. You can enroll at [email or web address] or register during your next office visit. [...] provider, you may find a [facility] provider by calling [facility] at [phone]. For information about the plan of care [...] Team Personnel Name: Leticia Herrera RN Position: [facility] RN Member Role: Primary Care Nurse Name: Yohana Ferreira MD Position: [facility] Physician (General Medicine) Member Role: PCP Address: Address: [address] [place] [id number] Name: Alison Sandoval RN Position: [facility] RN Member Role: Primary Care Nurse Name: Sena Crump Position: [facility] RN Member Role: Primary Care Nurse Name: Maren Wan RN Position: [facility] PCO RN Member Role: Primary Care Nurse Name: Sruthi Hauser MD Position: [facility] Infectious Disease MD Member Role: Lifetime Consulting Physician Address: Address: [address] [place] [address] Name: Yulisa Lobo RN Position: [facility] RN Member Role: Primary Care Nurse Care Team Related Persons Name: NONE, GIVEN Address: [place] [address] Name: ANGIE ZARATE Address: home [address] [place] [address] Name: JENNIFER ZARATE Address: [place] [address]
--- OUTSIDE RECORDS SUMMARY | 2023-10-27 08:56 | XMS_ITS | Continuity of Care Document ---
Author Organization [facility] Address [address] [place] [address]- Care Team Providers Care Cloth Washer Name Role Phone Hanna JASSO, Yohana Newton Primary Care Physician [phone] Encounter [facility] [place] Date(s): 08/07/20 - 09/06/20 [facility] [address] [place] [address] Attending Physician: AdmTamar chaparro Admitting Physician: AdmtrTamar Referring Physician: Admtr, Ar8 Allergies, Adverse Reactions, Alerts Substance Reaction Severity Status NKA Active Medications aspirin 81 mg oral delayed release tablet 81 mg, By Mouth, Daily, with food, # 30 tablet, Refills 11, Tot. Refills 11, Maintenance, 02/15/16 14:03:48, Route to Pharmacy Electronically, [id number], [facility] Start Date: 02/15/16 [...] Maintenance, 02/15/16 14:06:46, Route to Pharmacy Electronically, [id number], [facility] Start Date: 02/15/16 Stop Date: 06/14/16 Status: Ordered Odefsey oral tablet 1 tablet, By Mouth, Daily, # 30 tablet, 0 Refills, Maintenance, 09/04/19 17:05:00 EDT, Tablet Start Date: 09/04/19 Status: Ordered Odefsey oral tablet 1 tablet, By Mouth, Daily, with meals, # 30 tablet, 5 Refills, Maintenance, 04/20/20 11:45:00 EST, Tablet, [facility] #[id number], 1 tablet By Mouth Daily,x30 days,Instr:with meals, [...]
--- OUTSIDE RECORDS SUMMARY | 2023-10-27 08:56 | XMS_ITS | Continuity of Care Document ---
Author Organization [facility] Address [address] [place] [address]- Care Team Providers Care Server Service Assistant Name Role Phone Hanna JASSO, Yohana Newton Primary Care Physician [phone] [place] [facility] [place] 03/[place]21 - 04/25/21 [facility] [address] [place], [place] [address] Attending Physician: AdmTamar chaparro Admitting Physician: AdmtrTamar Referring Physician: Admtr, Mathieu8 Allergies, Adverse Reactions, Alerts Substance Reaction Severity [...] Maintenance, 02/15/16 14:03:48, Route to Pharmacy Electronically, [id number], [facility] Start Date: 02/15/16 [...] Maintenance, 02/15/16 14:06:46, Route to Pharmacy Electronically, [id number], [facility] Start Date: 02/15/16 Stop Date: 06/14/16 Status: Ordered Odefsey oral tablet 1 tablet, By Mouth, Daily, # 30 tablet, 0 Refills, Maintenance, 09/04/19 17:05:00 EDT, Tablet Start Date: 09/04/19 Status: Ordered Odefsey oral tablet 1 tablet, By Mouth, Daily, with meals, # 30 tablet, 5 Refills, Maintenance, 04/11/21 11:13:00 EDT, Tablet, [facility] #87163, 1 tablet By Mouth Daily,x30 days,Instr:with meals, 183.5, cm, 12/03/20 16:54:00 EDT, Height, 132.2, kg, 02/29/20 15... Start Date: 04/11/21 Stop Date: 10/08/21 Status: Ordered rosuvastatin 20 mg oral tablet [...]
--- OUTSIDE RECORDS SUMMARY | 2023-10-27 08:56 | XMS_ITS | Continuity of Care Document ---
Author Organization [facility] Address [address] [place] [address]- Care Team Providers Care Adjunct Trainer Name Role Phone Hanna JASSO, Yohana Newton Primary Care Physician En[place] [facility] [place] Date(s[place] 12/16/19 - 01/15/20 [facility] [address] [place] [address]- [facility] Attending Physician: Admshankar, Tamar Admitting Physician: Admtr, Tamar Referring Physician: Admtr, Ar8 Allergies, Adverse Reactions, Alerts Substance Reaction Severity Status NKA Active Medications aspirin 81 mg oral delayed release tablet 81 mg, By Mouth, Daily, with food, # 30 tablet, Refills 11, Tot. Refills 11, Maintenance, 02/15/16 14:03:48, Route to Pharmacy Electronically, [id number], [facility] Start Date: 02/15/16 Stop [...] Maintenance, 02/15/16 14:06:46, Route to Pharmacy Electronically, [id number], [facility] Start Date: 02/15/16 Stop Date: 06/14/16 Status: Ordered Odefsey oral tablet 1 tablet, By Mouth, Daily, # 30 tablet, 0 Refills, Maintenance, 09/04/19 17:05:00 EDT, Tablet Start Date: 09/04/19 Status: Ordered Odefsey oral tablet 1 tablet, By Mouth, Daily, with meals, # 30 tablet, 5 Refills, Maintenance, 10/17/19 13:52:00 EDT, Tablet, [facility] #[id number], 1 tablet By Mouth Daily,x30 days,Instr:with meals, [...]
--- OUTSIDE RECORDS SUMMARY | 2023-10-27 08:56 | XMS_ITS | Continuity of Care Document ---
Author Organization [facility] ter Address [address] [place] [id number]- Care Team Providers Care Sorter Operator Name Role Phone Hanna JASSO, Yohana Lamar Primary Care Physician Encounter [facility] Date(s): 04/13/23 - 04/14/[address] [address]- Encounter Diagnosis Palpitations(Final) - 04/14/23 Discharge Disposition: A-D/C Home Attending Physician: Arabella Shabazz MD Admitting Physician: Arabella Shabazz MD Referring Physician: Not on Staff, Referring MD Allergies, Adverse Reactions, Alerts No Known Allergies Immunizations Given and Recorded Vaccine Date Status Refusal Reason tetanus/diphtheria/pertussis, acel(Tdap) 04/23/22 Given tetanus/diphtheria/pertussis, acel(Tdap) 02/19/11 Recorded [id number] 12y+ bivalent booster vax 04/23/22 Recorded influenza [...] Maintenance, 02/15/16 14:03:48, Route to Pharmacy Electronically, [id number], [facility] 3 Start Date: 02/15/16 Stop [...] Maintenance, 02/15/16 14:06:46, Route to Pharmacy Electronically, [id number], [facility] Start Date: 02/15/16 Stop Date: 06/14/16 Status: Ordered Nystop [id number] u/gm powder See Instructions, APPLY TOPICALY 2 TIMES A DAY, # 60 Gm, 0 Refills, Maintenance, 09/18/22 8:11:00 EDT, [facility] #[id number], 25, APPLY TOPICALY 2 TIMES A DAY, [...] 5 Refills, Maintenance, 03/12/23 10:59:00 EDT, Tablet, [facility] #[id number], Partial fill upon patient request if the [...] obesity (BMI 35.0-39.9) with comorbidity Confirmed Active Results Radiology Reports * Exam Date Time Procedure Performing Provider Status 04/13/23 2:22 PM Chest 2 Views Frontal and Lat Wiater , Shalini; Auth (Verified) Notes: (Chest 2 Views Frontal and Lat) Reason For Exam: Chest Pain;Other: RESULT: Chest 2 Views Frontal and Lat Examination: Chest performed on 04/13/2023. History: Intermittent palpitations. Findings: Frontal and lateral views of the chest are compared to a prior study dated 09/03/2019. The cardiac and mediastinal silhouettes are within normal limits. The lungs are clear. The osseous and soft tissue structures are unremarkable. Impression: There is no acute cardiopulmonary disease. WSN: [id number] Ordering Physician: Zane Lou Dictated By: Nae Lutz MD Dictated Date/Time: 04/13/23 2:24 pm Reviewed By: Nae Lutz MD Signed By: Nae Lutz MD Signed Date/Time: 04/13/23 2:24 pm Transcribed By: MARY JO Transcribed Date/Time: 04/13/23 2:24 pm Vital Signs Most recent to oldest [Reference Range]: 1 2 3 Weight 122.5 kg (04/13/23 1:34 PM) 122.5 kg (04/13/23 1:01 PM) Oxygen Saturation [94-100 %] 98 % (04/14/23 11:17 AM) 99 % (04/14/23 7:16 AM) 99 % (04/14/23 3:33 AM) Pulse Rate [55-90 bpm] 67 bpm (04/14/23 11:17 AM) 62 bpm (04/14/23 7:16 AM) 55 bpm (04/14/23 3:33 AM) Blood Pressure [90-138/55-84 mm Hg] 117/80mm Hg (04/14/23 11:17 AM) 114/90mm Hg (04/14/23 7:16 AM) 122/74mm Hg (04/14/23 3:33 AM) Respiratory Rate [16-30 br/min] 14 br/min *L* (04/14/23 11:17 AM) 19 br/min (04/13/23 1:01 PM) 18 br/min (04/13/23 12:58 PM) Temperature [96.8-100.4 DegF] 97.9 DegF (04/14/23 7:16 AM) 98.2 DegF (04/14/23 3:33 AM) 98.1 DegF (04/14/23 12:52 AM) Mode of Delivery (Oxygen) Room air (04/14/23 11:17 AM) Room air (04/13/23 1:01 PM) Room air (04/13/23 12:58 PM) Blood pressure sites Arm, left (04/14/23 11:17 AM) Arm, left (04/14/23 7:16 AM) Arm, right (04/14/23 3:33 AM) Temperature Route Oral (04/14/23 7:16 AM) Oral (04/14/23 3:33 AM) Oral (04/14/23 12:52 AM) Dry Weight 122.5 kg (04/13/23 1:34 PM) 122.5 kg (04/13/23 1:01 PM) Social History Social History Type Response Smoking Status Never smoker entered on: 02/20/16 Sex EKG study * Event Display: ECG 12-Lead Authored Date: Please click on pdf link to open report * Event Display: ECG 12-Lead Authored Date: Ventricular Rate: 68 BPM Atrial Rate: 68 BPM P-R Interval: 182 ms QRS Duration: 88 ms Q-T Interval: 372 ms QTC Calculation(Bazett): 395 ms P Woodruff: 34 degrees R Woodruff: 7 degrees T Woodruff: 11 degrees Normal sinus rhythm Normal ECG When compared with ECG of 06-SEP-2019 08:54, No significant change was found Confirmed by MANJULA GARCIA ([id number]) on 04/14/2023 1:21:08 PM Neon: MANJULA GARCIA Patient Care team information Care Team Personnel Name: Leticia Herrera RN Position: [facility] RN Member Role: Primary Care Nurse Name: Yohana Ferreira MD Position: Reference Physician Member Role: PCP Address: Address: [address] [place] [id number] Name: Alison Sandoval RN Position: [facility] RN Member Role: Primary Care Nurse Name: Maren Wan RN Position: [facility] [place] Nurse Member Role: Primary Care Nurse Name: Sruthi Hauser MD Position: [facility] Physician - Infectious Disease Member Role: Lifetime Consulting Physician Address: Address: [address] [place] [address] [place] [address]- Name: Yulisa Lobo RN Position: [facility] RN Member Role: Primary Care Nurse Name: Arabella Shabazz MD Position: [facility] ED Medicine MD Member Role: Admitting Physician Address: Address: [address] [place] [address] [place] [address]- Name: Ana Sellers RN Position: [facility] ED RN W/OE and Tasks Member Role: Patient Care Provider Name: Kevin Ramsey Position: [facility] ED TA [facility] Member Role: Budget Examiner Name: Nader Chan Position: [facility] Associate Professional Member Role: ED Physician Quarry Supervisor [employer] Address: Address: [address] [place] [address] [place] [address]- Care Team Related Persons Name: NONE, GIVEN Address: [place] [address] Name: ANGIE ZARATE Address: home [address] [place] [address] Name: JENNIFER ZARATE Address: [place] [address]
--- OUTSIDE RECORDS SUMMARY | 2023-10-27 08:56 | XMS_ITS | Continuity of Care Document ---
Author Organization [facility] Infectious Disease Address [address] [place] [address]- Care Team Providers Care Infusion Pharmacist Name Role Phone Hanna JASSO, Yohana Newton Primary Care Physician Encounter [facility] Date(s): 05/28/20 - 06/27/20 [facility] [address] [place] [id number] Allergies, Adverse Reactions, Alerts Substance Reaction Severity Status NKA Active Medications aspirin 81 mg oral delayed release tablet 81 mg, By Mouth, Daily, with food, # 30 tablet, Refills 11, Tot. Refills 11, Maintenance, 02/15/16 14:03:48, Route to Pharmacy Electronically, [id number], [facility] Start Date: 02/15/16 Stop [...] Maintenance, 02/15/16 14:06:46, Route to Pharmacy Electronically, [id number], [facility] Start Date: 02/15/16 Stop Date: 06/14/16 Status: Ordered Odefsey oral tablet 1 tablet, By Mouth, Daily, # 30 tablet, 0 Refills, Maintenance, 09/04/19 17:05:00 EDT, Tablet Start Date: 09/04/19 Status: Ordered Odefsey oral tablet 1 tablet, By Mouth, Daily, with meals, # 30 tablet, 5 Refills, Maintenance, 04/20/20 11:45:00 EST, Tablet, [id number], 1 tablet By Mouth Daily,x30 days,Instr:with meals, [...]
[2023-10-27] MEDS: Gabapentin 300 MG CAPSULE PO (09:20)
[2023-10-27] MEDS: methocarbamoL 750 MG TABLET PO (09:20)
[2023-10-27] MEDS: Lactated Ringers 1,000 ML 100 ML IVCONT (09:26)
[2023-10-27 09:40] LABS: Anion Gap 13 (12-20); Blood Urea Nitrogen 13 mg/dL (9-16); Calcium 9.6 mg/dL (8.4-10.2); Carbon Dioxide 21 mmol/L (22-29); Chloride 111 mmol/L (96-108); Creatinine Clr Calc Pharmacy 101.3; Estimated Glomerular Filt Rate > 60; Glucose Fasting 101 mg/dL (60-99); Potassium 3.8 mmol/L (3.3-5.1); Sodium 141 mmol/L (135-145)
[2023-10-27] MEDS: ceFAZolin Sodium/Dextrose,Iso 2 GM/50 ML PIGGYBACK IV (10:26)
[2023-10-27] MEDS: Acetaminophen 1,000 MG/100 ML PIGGYBACK 400 MG IV ×2 (13:00→18:35)
--- NOTE | 2023-10-27 13:22 | P.OP_ITS ---
Operative Note Operative Note Date of Service: 10/27/23 Narrative: Preop Diagnosis: 1.) Lumbar degenerative degenerative disc disease and spinal stenosis L3-4 and L4-5 Procedure: 1) L3-4, L4-5 discectomy, arthrodesis and implantation cage through an anterolateral, retroperitoneal approach 2) L3-L5 posterior instrumented fusion 3) allograft 4) injection of 10 cc of Exparel at the bilateral L4 transverse process for a muscular erector spinae block and additional Exparel in paravertebral tissue for postop management Consent Informed Consent was obtained for this operation. I have explained the nature, purpose and benefits of the operation. I have discussed the risks and benefit of the operation including possible complications or adverse events with patient/family. Alternative(s) were discussed with the patient with their relative benefits and risks as well as the consequences of not accepting the operation were included in obtaining consent. Surgeon: VIJI GANDHI MD, PHD Procedure Assisted By: Tobin pollack Description of Procedure This 48-year-old male is suffering from back pain and neurogenic claudication due to severe L3-4 and L4-5 degenerative disc disease and central spinal stenosis. The patient was offered an oblique lumbar interbody fusion L3-4, L4- 5. The procedure complications were explained. The patient was consented. The patient was brought to the operating room and endotracheally intubated. The patient was turned in a lateral position with the left side up. Prep and drape was done followed by timeout. A small incision was made in the left lower abdominal quadrant. The muscle fascia was opened after which the 3 muscle layer was split to enter the retroperitoneal space. Dilators were docked in the anterior one third of the L4-5 disc space followed by a retractor. The retractor was opened. The L4-5 disc space was exposed. An annulotomy was done after which an elevator Small was used to release the disc material from its endplates and to perforate the contralateral side. A partial discectomy was done. An 8 mm height trial implant was inserted. The discectomy was completed. The endplates were prepared. An 10 x 50 mm with 6 degree lordosis 4 web cage filled with allograft was inserted into the disc space under fluoroscopic guidance. This resulted in increase of disc height and foraminal height. The retractor was removed and repositioned over the L3-4 disc space. An annulotomy was done. A Small elevator was used to release the disc material from the endplates and to perforate the contralateral annulus. An 8 mm trial was inserted which temporarily corrected the disc collapse on the right side. The diskectomy was completed and endplates were prepared after which an 8 mm x 50 mm and 0 degree lordosis 4 web cage filled with allograft was inserted into the disc space. This resolved the unilateral disc collapse and restored the appropriate anatomy.. Hemostasis was done. The incision was closed in 2 layers. Steri-Strips used to approximate incision. An OpSite with Tegaderm was used to cover the incision. This marked first part of the procedure. The patient was turned prone on the Michael spine table. 2C arms were installed for fluoroscopy. Prep and drape was done followed by a second timeout. 2 paramedian incisions were made lateral from the L3-L5 pedicles. The muscle fascia was opened after which the muscle layer was split bluntly to expose the posterolateral gutter. The following steps were taken. A pediguard tap was used to create a transpedicular trajectory into the vertebral body. A K wire was placed. A specially designed instrument was advanced over the K wire to decorticate the posterolateral gutter in preparation for the posterolateral fusion. A pedicle screw was advanced over the K wire and the K wire was removed. The steps were done for the bilateral L3, L4 and L5 pedicles. A total of 6 screws were placed with a diameter of 6.5 x 45 mm. Pedicle screws were connected with 80 mm juany bilaterally and locked down with locking caps. The extension towers were removed. The posterolateral gutter was filled with allograft to complete the posterolateral L3-L5 fusion Hemostasis was done and the incision was closed in 2 layers. Steri-Strips were used to approximate the incision. An OpSite were taken and was used to cover the incision. All sponge and needle counts were correct. Patient was extubated and transferred in stable is to recovery room. The physician assistant operations manager performed closure of the incisions and insertion of the pedicle screws. Anesthesia: General Estimated Blood Loss (ml): 60 mL Duration of Surgery: 2 hours and 30 minutes Complications: None Postoperative Plan: Admit to inpatient for observation
--- NOTE | 2023-10-27 13:57 | PHA.MEDREC ---
Pharmacy Consult ? Medication Reconciliation Pharmacy has completed the medication reconciliation. Reviewed med rec done by nursing ().
[2023-10-27] MEDS: HYDROmorphone HCl 0.5 MG/0.5 ML SYRINGE 0.25 MG IVPUSH ×2 (14:17→14:22)
[2023-10-27] MEDS: oxyCODONE HCl Immed Release 5 MG TABLET 10 MG PO ×3 (14:29→22:53)
[2023-10-27] MEDS: 0.9 % Sodium Chloride 1,000 ML 75 ML IVCONT (15:50)
[2023-10-27] MEDS: HYDROmorphone HCl 1 MG/ML SYRINGE IVPUSH ×2 (17:12→20:12)
[2023-10-27] MEDS: ceFAZolin Sodium 3 GM in 0.9 % Sodium Chloride 100 ML IV ×2 (17:12→21:08)
[2023-10-27] MEDS: Docusate Sodium 100 MG CAPSULE PO (20:01)
[2023-10-27] MEDS: Metoprolol Tartrate 50 MG TABLET PO (20:01)
[2023-10-27] MEDS: Fenofibrate 54 MG TABLET PO (20:02)
[2023-10-27] MEDS: Mirtazapine 7.5 MG TABLET PO (21:11)
[2023-10-27] MEDS: Zolpidem Tartrate 5 MG TABLET PO (23:10)
[2023-10-28] MEDS: Acetaminophen 1,000 MG/100 ML PIGGYBACK 400 MG IV ×2 (00:04→06:08)
[2023-10-28] MEDS: ceFAZolin Sodium 3 GM in 0.9 % Sodium Chloride 100 ML IV (03:30)
[2023-10-28 03:37] VITALS: BP 137/73; PULSE 76; RESP 18; TEMP 36.6; O2SAT 97
[2023-10-28] MEDS: 0.9 % Sodium Chloride 1,000 ML 75 ML IVCONT (05:24)
[2023-10-28] MEDS: HYDROmorphone HCl 1 MG/ML SYRINGE IVPUSH (05:33)
[2023-10-28 07:21] VITALS: BP 151/77; PULSE 74; RESP 18; TEMP 36.8; O2SAT 97
[2023-10-28] MEDS: oxyCODONE HCl Immed Release 5 MG TABLET 10 MG PO ×2 (07:23→11:56)
--- NOTE | 2023-10-28 07:38 | PM.DS ---
DS: Providers Provider Date of Service: 10/28/23 Date of admission: 10/27/23 08:49 Primary care physician: Zen Conley MD DS: Summary Time Attestation Discharge Coordination Time (in mins): 15 Quality: Safe Use of Opioids Does Pt have an Active Cancer Diagnosis on the Problem List?: No Quality: Stroke Does the patient have a stroke diagnosis?: No Physical Exam Vital Signs: Vital Signs: Last Vital Signs Temp 98.2 F 10/28/23 07:21 Pulse 74 10/28/23 07:21 Resp 18 10/28/23 07:21 BP 151/77 H 10/28/23 07:21 Pulse Ox 97 10/28/23 07:21 O2 Del Method Room Air 10/28/23 07:21 O2 Flow Rate 4 10/27/23 14:12 BMI result Body Mass Index 36.4 DS: Data Data Completed and Pending Labs on day of discharge: Laboratory Results - last 24 hr 10/27/23 09:04 Sodium 141 Potassium 3.8 Chloride 111 H Carbon Dioxide 21 L Anion Gap 13 BUN 13 Creatinine 1.26 Estim Creat Clear Calc 101.3 Estimated GFR > 60 Fasting Glucose 101 H Calcium 9.6 Discharge Plan Discharge Anticipated Discharge Date/Time: 10/28/23 07:43 Patient Disposition: Home, Self-Care Discharge Diagnosis: s/p l3-5 OLIF Referrals: Zen Conley MD [Primary Care Provider] - 1 Week Discharge Medications: New oxycodone 5 mg tablet 5 mg PO Q6H PRN (Reason: severe pain (scale score 7-10)) Qty: 30 0RF Rx Instructions: Partial Fill upon patient request. Continued metoprolol tartrate 50 mg Tablet 50 mg PO BID diclofenac sodium 75 mg tablet,delayed release (DR/EC) 75 mg PO BID PRN (Reason: Pain) tadalafil 20 mg tablet 20 mg PO DAILY PRN (Reason: Sexual Activity) fenofibrate 54 mg tablet 54 mg PO BEDTIME omega 1-jux-uhf-fish oil [Fish Oil] 1,200 (144-216) mg Capsule 1 cap PO DAILY qphlyrldqn-tlkphqib-grqgwk ala 200-25-25 mg Tablet 1 tab PO BEDTIME Rx Instructions: must administer with a meal/food rosuvastatin 40 mg tablet 40 mg PO BEDTIME naproxen 500 mg Tablet 500 mg PO BID PRN (Reason: Pain) mirtazapine 7.5 mg tablet 7.5 mg PO BEDTIME Held aspirin 81 mg Tablet,Delayed Release (Dr/Ec) 81 mg PO DAILY Hold Instructions: Resume on 11/04/23. Discharge Orders: Discharge Order (Routine); Ordered 10/28/23 Ordered By: Edmund Godinez Diet: Advance to usual diet Activity on Discharge: As tolerated Stand Alone Forms: Patient Portal Discharge page Print Language: Nepali Care Plan Goals: Return to normal activity as tolerated Health Concerns: None Plan of Treatment: Follow-up in clinic in 2-3 weeks Assessment: POD: 1 Procedure: L3-5 SKYLER Fu was seen this morning sitting upright in bed on 3-S. He reports he is up oob walking around is otherwise doing well. He feels his symptoms are better than pre-operatively. He still reports mild-moderate low back pain, with good relief with pain medication. He is voiding well, tolerating diet. Afebrile, vital signs stable. Full strength 5/5 LEs. Back dressings have some staining without signs of hematoma. No active sanguineous drainage. Area is dry. Plan: Patient meets criteria to be medically discharged home. He was seen at bedside with Dr. Maria. I sent in a prescription of oxycodone 5 mg to [facility] [place].
--- NOTE | 2023-10-28 07:43 | HO.NEUROPN_ITS ---
Neurosurgery Operative Note Date of Service: 10/28/23 Narrative: POD: 1 Procedure: L3-5 SKYLER Fu was seen this morning sitting upright in bed on 3-S. He reports he is up oob walking around is otherwise doing well. He feels his symptoms are better than pre-operatively. He still reports mild-moderate low back pain, with good relief with pain medication. He is voiding well, tolerating diet. Afebrile, vital signs stable. Full strength 5/5 LEs. Back dressings have some staining without signs of hematoma. No active sanguineous drainage. Area is dry. Plan: Patient meets criteria to be medically discharged home. He was seen at bedside with Dr. Maria. I sent in a prescription of oxycodone 5 mg to [facility] pharmacy.
--- NOTE | 2023-10-28 08:51 | MHC.CM.PN ---
Patient is from home w/ parents. Functionally independent. Uses CPAP, supplies through [facility]. PCP Zen Conley MD No HCP. CM provided education and offered assistance. Patient declined. DP: Medically cleared to [place] home, self care. Patient's friend will provide transport @ 1263. RN aware.
[2023-10-28] MEDS: Atorvastatin Calcium 80 MG TABLET PO (09:05)
[2023-10-28] MEDS: Docusate Sodium 100 MG CAPSULE PO (09:05)
[2023-10-28 09:07] VITALS: BP 154/78; PULSE 77
[2023-10-28] MEDS: Metoprolol Tartrate 50 MG TABLET PO (09:07)
--- NOTE | 2023-10-28 11:39 | HO.POSTANES ---
Post Anesthesia Evaluation Post Anesthesia Evaluation Date of Service: 10/27/23 Vital Signs: Vital Signs Temp Pulse Resp BP Pulse Ox O2 Del Method 10/28/23 09:07 77 154/78 H 10/28/23 07:21 98.2 F 74 18 151/77 H 97 Room Air 10/28/23 03:37 97.8 F 76 18 137/73 97 Room Air Anesthesia: General Endotracheal-GETA Mental Status: Awake Pain Control: Satisfactory Nausea/Vomiting: None Hydration: Adequate Anesthesia-Related Issues: No Anes. Related Issues
== END 2023-10-28 12:55 | disposition home or self-care (01) | DRG 460 ==
LOC: HO.SSSA 08:52 → HO.S3 14:51
PROVIDERS: Neurological Surgery; Nurse Practitioner; Admitting Provider Physician Assistant; PCP Internal Medicine; Visit Provider Physician Assistant
PROC: 0SG10A0 Fusion of 2 or more Lumbar Vertebral Joints with Interbody Fusion Device, Anterior Approach, Anterior Column, Open Approach (ICD-10-PCS; principal; 2023-10-27 11:00)
DX: M51.36 Other intervertebral disc degeneration, lumbar region (principal); M48.061 Spinal stenosis, lumbar region without neurogenic claudication; Z79.82 Long term (current) use of aspirin; Z79.899 Other long term (current) drug therapy
CPT/HCPCS: 36415; 80048; 86850; 86900; 86901; 93005; 97161; C1713; C1889; C9290; J0131; J0665; J0690; J1100; J1170; J2250; J2704; J3010; L8699

== ENCOUNTER → 2023-10-27 08:49 | Outpatient (BNV) | payer OTHER, SELFPAY | PROVIDERS: Admitting Provider Physician Assistant; PCP Internal Medicine; Visit Provider Neurological Surgery | DX: M51.36 Other intervertebral disc degeneration, lumbar region (principal); M48.061 Spinal stenosis, lumbar region without neurogenic claudication | CPT/HCPCS: 20936; 22558; 22585; 22612; 22614; 22840; 22853; 99024; 99499 ==

== ENCOUNTER → 2023-11-17 13:28 | Outpatient (BNVA) | payer OTHER, SELFPAY | PROVIDERS: PCP Internal Medicine; Visit Provider Physician Assistant ==

== ENCOUNTER 2023-12-28 08:55 | Outpatient (REF) | payer OTHER, SELFPAY ==
--- NOTE | ~2023-12-28 | XR_ITS ---
EXAMINATION: XR LUMBOSACRAL SPINE WITH OBLIQUES CLINICAL INFORMATION: Arthrodesis status COMPARISON: None available. TECHNIQUE: AP, lateral views of the lumbar spine with flexion and extension views. The patient is status post FINDINGS: Fusion with intervertebral disc spacers at L3-L5 without evidence of hardware complication. No appreciable listhesis on flexion and extension views. Alignment is normal. Mild bony spurring. Sacroiliac joints are intact. XR/XR lumbar spine 4V min IMPRESSION: Fusion at L3-L5 without evidence of hardware complication.
== END 2023-12-28 08:56 | disposition home or self-care (01) ==
LOC: HO.HOSX 08:55
PROVIDERS: Visit Provider Physician Assistant
DX: Z98.1 Arthrodesis status (principal)
CPT/HCPCS: 72110

== ENCOUNTER 2023-12-28 09:54 | Outpatient (AMB) | payer OTHER, SELFPAY ==
--- NOTE | 2023-12-28 10:04 | A.SPINEOV_ITS ---
Intake Visit Reasons: 2nd post op with xrays Intake Note: Mr. Mark is here today for his 2nd post-op visit. Ordained Minister Required: No Allergies No Known Allergies Allergy (Verified 11/17/23 13:39) Assessment & Plan Assessment & Plan (1) S/P lumbar fusion: Code(s): Z98.1 - Arthrodesis status Category: Surgical Plan Tank comes in today for his 2nd postoperative visit after having a L3-4, L4-[address] Maria. He continues to report resolution of the shoo ting pains down his legs, but does still report some pain in his low back. In addition to this he reports pain in his right hip feels this may be related to a different issue that his primary care physician is working up this time. He is completing all of his ADLs and I believe he is doing very well since his surgery. He is scheduled to return to work at [employer] in the coming weeks. I encouraged him to refrain from any excessive heavy lifting. No new neurological deficits. Posterior and anterior lateral incision sites appear closed and well healed. The patient ambulates well and rises from seated position without difficulty. I would like to follow up with Tank again in 2 months to ensure satisfactory healing progress for his 3rd postoperative visit. Edmund Maria MD,PhD [facility] Orders: Orders XR lumbar spine 4V min Today Z98.1 - Arthrodesis status Coding Level of Care Code Global (91852) Diagnoses S/P lumbar fusion Z98.1
== END 2023-12-28 11:01 | disposition home or self-care (01) ==
PROVIDERS: PCP Internal Medicine; Visit Provider Physician Assistant
DX: Z98.1 Arthrodesis status (principal)
CPT/HCPCS: 99024